=== PATIENT | female | born 1945 | race African-American/Black ===

== ENCOUNTER 2016-09-27 06:59 | Day surgery (SDC) | payer OTHER ==
[2016-09-27 07:38] VITALS: BMI 18.8
[2016-09-27] MEDS ORDERED: PROPOFOL 20 ML ONE (08:38)
[2016-09-27 08:55] VITALS: TEMP 97.9
[2016-09-27 10:23] VITALS: BP 188/86; PULSE 60
--- NOTE | 2016-09-28 15:01 | PATH ---
Surgical Pathology Report Patient Name: [facility] WE[facility]. Rec. #: [id number] /Age/Gender: 1945 (Age: 71) / F Account: [id number] Location: U-ENDOSCOPY Taken: 09/27/2016 Received: 09/27/2016 Reported: 09/28/2016 Physicians: Unruly Bailey M.D. Specimen(s) Received A: BX DUODENUM B: BX ANTRUM EROSIONS C: BX GASTRIC BODY D: BX ESOPHAGUS Clinical History Weight loss Antrum gastric ulcer, abnormal mucosa, rule out atrophy, Schatzki's ring Final Diagnosis A. DUODENUM, BIOPSY: DUODENAL MUCOSA WITHOUT SIGNIFICANT PATHOLOGIC CHANGES. NO HISTOLOGIC EVIDENCE OF GLUTEN SENSITIVE ENTEROPATHY (CELIAC DISEASE). B. STOMACH, ANTRUM, EROSION, BIOPSY: GASTRIC ANTRAL MUCOSA WITH MODERATE CHRONIC GASTRITIS AND REACTIVE GASTROPATHY. IMMUNOSTAIN FOR H. PYLORI IS NEGATIVE FOR ORGANISMS. C. STOMACH, BODY, BIOPSY: GASTRIC OXYNTIC MUCOSA WITH MILD CHRONIC GASTRITIS. IMMUNOSTAIN FOR H. PYLORI IS NEGATIVE FOR ORGANISMS. D. ESOPHAGUS, BIOPSY: SQUAMOUS EPITHELIUM WITH CHRONIC INFLAMMATION AND REFLUX TYPE CHANGES. NO COLUMNAR EPITHELIUM PRESENT (NO INTESTINAL METAPLASIA/DOHERTY'S ESOPHAGUS IDENTIFIED). NO EVIDENCE OF EOSINOPHILIC ESOPHAGITIS. Electronically Signed Yovany Don M.D. Gross Description A. Received in formalin, labeled "biopsy duodenum" are 2 ansari, irregular portions of soft tissue measuring 0.2 and 0.3 cm in greatest dimension. The specimens are submitted in toto in one cassette. B. Received in formalin, labeled "biopsy antrum" are 4 ansari, irregular portions of soft tissue ranging from 0.2-0.3 cm in greatest dimension. The specimens are submitted in toto in one cassette. C. Received in formalin, labeled "biopsy gastric body" is a ansari, irregular portion of soft tissue measuring 0.3 cm in greatest dimension. The specimen is submitted in toto in one cassette. D. Received in formalin, labeled "biopsy esophagus" is a ansari, irregular portion of soft tissue measuring 0.2 cm in greatest dimension. The specimen is submitted in toto in one cassette. /09/27/201609/27/2016
== END 2016-09-27 09:50 | disposition home or self-care (01) ==
LOC: JASU-ENDO 06:59
PROVIDERS: ATTEND Internal Medicine Gastroenterology
PROC: 0DB68ZX Excision of Stomach, Via Natural or Artificial Opening Endoscopic, Diagnostic (ICD-10-PCS; 2016-09-27)
PROC: 0DB98ZX Excision of Duodenum, Via Natural or Artificial Opening Endoscopic, Diagnostic (ICD-10-PCS; principal; 2016-09-27 08:30)
DX: K29.50 Unspecified chronic gastritis without bleeding (principal); R63.4 Abnormal weight loss; K25.9 Gastric ulcer, unspecified as acute or chronic, without hemorrhage or perforation; K22.2 Esophageal obstruction; K31.89 Other diseases of stomach and duodenum
CPT/HCPCS: 88305-TC; 88342-TC

== ENCOUNTER → 2017-01-12 | Day surgery (SDC) | payer OTHER ==
--- NOTE | 2017-01-13 17:26 | PATH ---
Cytology Non-Gynecological Report Patient Name: QUEEN WELLINGTON [facility]. Rec. #: [id number] /Age/Gender: 1945 (Age: 71) / F Account: [id number] Location: RADIOLOGY Taken: 01/12/2017 Received: 01/12/2017 Reported: 01/13/2017 Physicians: Johanna Gonzalez M.D. Specimen(s) Received LEFT THYROID FNA Clinical History Left Nodule, 3.24 x 1.41 x 2.22 cm Final Diagnosis THYROID, LEFT, FINE NEEDLE ASPIRATION: SATISFACTORY FOR EVALUATION BETHESDA CLASS II: BENIGN. CYTOLOGIC FINDINGS ARE CONSISTENT WITH A BENIGN FOLLICULAR NODULE BENIGN FOLLICULAR CELLS, FEW MACROPHAGES AND ABUNDANT COLLOID PRESENT. Electronically Signed Keturah Hussein M.D. Gross Description Received are eight direct smears, four of which are air-dried and Diff-Quik stained, and four of which are alcohol fixed and Pap stained. Also received is 20 ml of bloody formalin from which one cellblock is prepared.
== END | disposition home or self-care (01) ==
LOC: JRADIR 08:49
PROVIDERS: ATTEND Internal Medicine Endocrinology, Diabetes & Metabolism
PROC: 0G9G3ZX Drainage of Left Thyroid Gland Lobe, Percutaneous Approach, Diagnostic (ICD-10-PCS; principal; 2017-01-12)
DX: E04.1 Nontoxic single thyroid nodule (principal)
CPT/HCPCS: 76942; 88173; 88305-TC

== ENCOUNTER 2019-05-11 10:36 | Inpatient (IN) | payer OTHER ==
--- NOTE | 2019-05-11 11:13 | PDOC ---
History of Present Illness - General Stated Complaint: SYNCOPY Time Seen by Provider: 05/11/19 10:46 History Source: Patient, EMS, Spouse Exam Limitations: No Limitations - History of Present Illness Initial Comments: 05/11/19 11:10 74y F with PMH of CAD (s/p stent 2006), HTN, NIDDM (not on meds currently), ? CKD BIBEMS for syncopal episode. Pt states she was in line at a store then woke up on the floor. Her (who is blind) felt patient fall back onto him and he is unsure if patient hit her head but says when she was on the ground she immediately started verbalizing. He did not feel any convulsions but is unsure if she hit her head. Pt denies dehydration, prodromal symptoms, changes in vision, fevers, chills, chest pain, n/v/d, abdominal pain, numbness/tingling, weakness, headache, neck pain, sob. PMD: Nisha Cards: PMH: see hpi PSH: see hpi Meds: lisinopril, amlodipine, atorvastatin Allergies: nkda Social: Past History - Past Medical History Allergies/Adverse Reactions: Allergies Allergy/AdvReac Type Severity Reaction Status Date / Time No Known Allergies Allergy Verified 12/18/18 10:23 Home Medications: Ambulatory Orders Amlodipine Besylate [Norvasc -] 5 mg PO DAILY 09/27/16 Aspirin [ASA -] 81 mg PO DAILY 09/27/16 Labetalol HCl [Normodyne -] 200 mg PO DAILY 09/27/16 Lisinopril [Prinivil -] 40 mg PO DAILY 09/27/16 Anemia: No Asthma: No Cancer: No Cardiac Disorders: Yes ([place]) CVA: No COPD: No CHF: No Dementia: No Diabetes: Yes GI Disorders: No Disorders: No HTN: Yes Hypercholesterolemia: Yes Liver Disease: No Seizures: No Thyroid Disease: No - Surgical History Abdominal Surgery: No Appendectomy: No Cardiac Surgery: Yes (STENTS 2014) Cholecystectomy: No Lung Surgery: No Neurologic Surgery: No Orthopedic Surgery: No - Psycho Social/Smoking Cessation Hx Smoking History: Current some day smoker Have you smoked in the past 12 months: Yes Number of Cigarettes Smoked Daily: 6 Hx Alcohol Use: No Drug/Substance Use Hx: No Substance Use Type: None Hx Substance Use Treatment: No Review of Systems - Review of Systems Constitutional: No: Symptoms Reported HEENTM: No: Symptoms Reported Respiratory: No: Symptoms reported Cardiac (ROS): Yes: Syncope ABD/GI: No: Symptoms Reported : No: Symptoms Reported Musculoskeletal: No: Symptoms Reported Integumentary: No: Symptoms Reported Neurological: No: Symptoms reported *Physical Exam - Physical Exam General Appearance: Yes: Appropriately Dressed, Thin. No: Apparent Distress HEENT: positive: EOMI, BILL, Normal ENT Inspection Neck: positive: Trachea midline, Supple. negative: Tender, Lymphadenopathy (R) , Lymphadenopathy (L) Respiratory/Chest: positive: Lungs Clear, Normal Breath Sounds. negative: Crackles, Rales, Rhonchi, Stridor, Wheezing Cardiovascular: positive: Regular Rhythm, Regular Rate, Murmur (systolic murmer at r upper sternal border) Vascular Pulses: Dorsalis-Pedis (R): 2+, Doralis-Pedis (L): 2+ Gastrointestinal/Abdominal: positive: Normal Bowel Sounds, Soft. negative: Tender Musculoskeletal: negative: CVA Tenderness Extremity: positive: Normal Capillary Refill. 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 vitals wnl ddx includes acs, arrhythmia, pe, vasovagal, orthostatic. in light of new murmur, likely cardiac in origin. -cardiac labs, cbc, cmp -ekg, cxr, ct head labs wnl ct head negative for pathology, no signs of infection on cxr. ekg does not reveal signs of ischemia. will admit for syncope to tele. Discharge - Discharge Information Problems reviewed: Yes Clinical Impression/Diagnosis: Syncope Qualifiers: Syncope type: unspecified Qualified Code(s): R55 - Syncope and collapse Condition: Stable - Admission Yes - Follow up/Referral - Patient Discharge Instructions - Post Discharge Activity
[2019-05-11 11:34] LABS: BASO % 0.7 % (0-2.0); EOS % 0.2 % (0-4.5); HEMATOCRIT 33.3 % (32.4-45.2); HEMOGLOBIN 11.2 GM/dL (10.7-15.3); LYMPH % 18.5 % (8-40); MCH 29.8 pg (25.7-33.7); MCHC 33.7 g/dl (32.0-36.0); MEAN CELL VOLUME 88.4 fl (80-96); MEAN PLT VOLUME 8.5 fl (7.5-11.1); NEUT % 65.6 % (42.8-82.8); PLATELET COUNT 145 K/MM3 (134-434); RBC 3.77 M/mm3 (3.60-5.2); RDW 13.9 % (11.6-15.6); WHITE BLOOD COUNT 3.6 K/mm3 (4.0-10.0)
[2019-05-11 11:49] LABS: INR 1.14 (0.83-1.09); PROTHROMBIN TIME (PATIENT) 13.5 SEC (9.7-13.0)
[2019-05-11 12:05] LABS: ALBUMIN 3.1 g/dl (3.4-5.0); BILIRUBIN,TOTAL 0.4 mg/dL (0.2-1); CALCIUM 8.5 mg/dL (8.5-10.1); CREATININE 1.7 mg/dL (0.55-1.3)
--- NOTE | 2019-05-11 12:15 | PDOC ---
Documentation entered by Aaliyah Bacon SCRIBE, acting as scribe for Shannon Vicente MD. Shannon Vicente MD: This documentation has been prepared by the Jordi russell Adrianna, SCRIBE, under my direction and personally reviewed by me in its entirety. I confirm that the documentation accurately reflects all work, treatment, procedures, and medical decision making performed by me. Attending Attestation - Resident Resident Name: Suha De Jesus - ED Attending Attestation I have performed the following: I have examined & evaluated the patient, The case was reviewed & discussed with the resident, I agree w/resident's findings & plan, Exceptions are as noted - HPI HPI: 74 year old female, with PMH of [place] (s/p stent 14 years ago), CAD, HTN, DM (diet controlled), presents to the ED s/p syncopal episode. Patient was in line at a store, when she suddenly lost consciousness and fell into her . is blind, so he is unsure if she hit her head during the fall. She only recalls waking up on the floor, but was able to talk immediately after the episode. denies any precipitating chest pain or palpitations, only similar event 30 yrs ago. no dark stool. eating and drinking well. no f/c no urinary complaints. no other complaints. now at baseline no focal weakness. Allergies: NKA, NKDA Surgical History: stent Social History: Denies EtOH, tobacco, or illicit drug use PCP: Dr. Cameron 05/11/19 12:08 - Physicial Exam PE: 05/11/19 12:12 awake alert lungs clear bilat heart rrr systolic murmur /. abd soft nt nd ext wwp. no edema. no calf tenderness. skin warma nd dry nuero alert oriented x 3. 5/5 all four ext. speech clear. . - Medical Decision Making 05/11/19 12:12 74 yo F with h/o htn dm cad here with syncope. differential dehydration, critical , aaa, infection such as uti, dysrythmia, mi plan labs ekg cxr ct head r/o ich, pt will require admission to telemetry for r/o acs. dysrythmia. Heart Score/ECG Review #1 ECG reviewed & interpreted by me at: 12:14 General ECG Interpretation: Sinus Rhythm, Normal Rate (63), Normal Intervals, No acute ischemic changes Compared to previous ECG there are: Other (left axis)
[2019-05-11] MEDS ORDERED: INSULIN (NOVOLOG) ASPART 100 UNITS/ML 10ML VIAL SQ SCH (16:30)
--- NOTE | 2019-05-11 16:30 | HP ---
Admitting History and Physical - Primary Care Physician PCP: Yimi Cameron - Admission Chief Complaint: syncope History of Present Illness: 74 year old female with PMH [place], CAD s/p stenting, HTN, DM, CKD presents to the ED after syncopal episode. she was getting ready to leave the store and her whom is blind was behind her, felt her fall backwards on to him. he doesnt know if she hit her head. she woke up this morning feeling fine, ate breakfast, without issue. she does not remember the event. only remembers getting ready to check out and then woke up on the ground. she denies chest pains, pressure, n/v/d. she states she lives with her , uses no assistive devices, still drives. History Source: Patient, Family Member - Past Medical History Cardiovascular: Yes: CAD, HTN Renal/: Yes: Renal Inusuff Endocrine: Yes: Diabetes Mellitus - Past Surgical History Past Surgical History: Yes: Stent - Smoking History Smoking history: Current some day smoker Have you smoked in the past 12 months: Yes Aproximately how many cigarettes per day: 6 - Alcohol/Substance Use Hx Alcohol Use: No - Social History Usual Living Arrangement: Yes: With Spouse Home Medications - Allergies Allergies/Adverse Reactions: Allergies Allergy/AdvReac Type Severity Reaction Status Date / Time No Known Allergies Allergy Verified 12/18/18 10:23 - Home Medications Home Medications: Ambulatory Orders Amlodipine Besylate [Norvasc -] 5 mg PO DAILY 09/27/16 Aspirin [ASA -] 81 mg PO DAILY 09/27/16 Labetalol HCl [Normodyne -] 200 mg PO DAILY 09/27/16 Lisinopril [Prinivil -] 40 mg PO DAILY 09/27/16 Review of Systems - Review of Systems Constitutional: reports: No Symptoms Eyes: reports: No Symptoms HENT: reports: No Symptoms Neck: reports: No Symptoms Cardiovascular: reports: No Symptoms Respiratory: reports: No Symptoms Gastrointestinal: reports: No Symptoms Genitourinary: reports: No Symptoms Breasts: reports: No Symptoms Reported Musculoskeletal: reports: No Symptoms Integumentary: reports: No Symptoms Neurological: reports: No Symptoms Endocrine: reports: No Symptoms Hematology/Lymphatic: reports: No Symptoms Psychiatric: reports: No Symptoms Physical Examination Vital Signs: Vital Signs Temperature 98.3 F 05/11/19 15:17 Pulse Rate 64 02/21/20 10:45 Respiratory Rate 17 05/11/19 10:45 Blood Pressure 145/72 05/11/19 10:45 O2 Sat by Pulse Oximetry (%) 99 05/11/19 11:15 Constitutional: Yes: No Distress, Calm Eyes: Yes: Conjunctiva Clear HENT: Yes: Atraumatic, Normocephalic Neck: Yes: Supple Cardiovascular: Yes: Regular Rate and Rhythm Respiratory: Yes: Regular, CTA Bilaterally Gastrointestinal: Yes: Normal Bowel Sounds, Soft Musculoskeletal: Yes: WNL, Other (right shoulder arthritis, left foot arthritis) Extremities: Yes: WNL Integumentary: Yes: WNL Neurological: Yes: Alert, Oriented Labs: CBC, BMP 05/11/19 11:05 05/11/19 11:05 Problem List - Problems (1) Syncope and collapse Assessment/Plan: cardiology consult neuro consult head ct done check carotid check echo Code(s): R55 - SYNCOPE AND COLLAPSE (2) CAD (coronary artery disease) Assessment/Plan: cont home asa Code(s): I25.10 - ATHSCL HEART DISEASE OF [place] CORONARY ARTERY W/O ANG PCTRS (3) HTN (hypertension) Assessment/Plan: cont home meds monitor bp Code(s): I10 - ESSENTIAL (PRIMARY) HYPERTENSION (4) Diabetes Assessment/Plan: not on home meds monitor glucose check a1c Code(s): E11.9 - TYPE 2 DIABETES MELLITUS WITHOUT COMPLICATIONS (5) CKD (chronic kidney disease) Assessment/Plan: cr 1.7 monitor Code(s): N18.9 - CHRONIC KIDNEY DISEASE, UNSPECIFIED
--- NOTE | 2019-05-11 17:06 | CON.NEURO ---
Consult Consult Specialty:: NEUROLOGY-JEY FERNÁNDEZ - History of Present Illness History of Present Illness: 74 year old female with PMH [place], CAD s/p stenting, HTN, DM, CKD presents to the ED after syncopal episode. she was in the store and her whom is blind was behind her, felt her fall backwards on to him. he doesnt know if she hit her heard.Denies past syncope, denies premonition with current event, denies confusion after event. Denies all other neurologic symptoms. - Past Medical History Cardio/Vascular: Yes: CAD, HTN Renal/: Yes: Renal Inusuff Endocrine: Yes: Diabetes Mellitus - Past Surgical History Past Surgical History: Yes: Stent - Alcohol/Substance Use Hx Alcohol Use: No - Smoking History Smoking history: Current some day smoker Have you smoked in the past 12 months: Yes Aproximately how many cigarettes per day: 6 Home Medications - Allergies Allergies/Adverse Reactions: Allergies Allergy/AdvReac Type Severity Reaction Status Date / Time No Known Allergies Allergy Verified 12/18/18 10:23 - Home Medications Home Medications: Ambulatory Orders Amlodipine Besylate [Norvasc -] 5 mg PO DAILY 09/27/16 Aspirin [ASA -] 81 mg PO DAILY 09/27/16 Labetalol HCl [Normodyne -] 200 mg PO DAILY 09/27/16 Lisinopril [Prinivil -] 40 mg PO DAILY 09/27/16 Physical Exam-Neuro Vital Signs: Vital Signs Temperature 98.3 F 05/11/19 16:00 Pulse Rate 65 05/11/19 16:00 Respiratory Rate 18 05/11/19 16:00 Blood Pressure 159/77 05/11/19 16:00 O2 Sat by Pulse Oximetry (%) 99 05/11/19 16:00 Labs: CBC, BMP 05/11/19 11:05 05/11/19 11:05 INR, PTT INR 1.14 (0.83-1.09) H 05/11/19 11:05 - Neuro Exam Mini Mental Exam: normal DTR's: 0 Left Achilles, 0 Right Achilles, 2+ Left Bicep, 2+ Right Bicep, 2+ Left Tricep, 2+ Right Tricep, 2+ Left Brachioradialis, 2+ Right Brachioradialis Motor Strength: 5/5: Left Arm, Right Arm, Left Leg, Right Leg Gait: Other (somewhat slow but steady) Assessment/Plan Pt. presents with syncope, likely cardiogenic. No evid. of sz. Etiology?? med combination and cardiovasc. causes, not likely neurocardiogenic syncope. Agree with carotid study, echo. Thank you, please call if needed. Jose Roberto Martines MD
[2019-05-11] MEDS: HEPARIN NA (PORCINE) 5,000 UNITS/ML 1ML VIAL SQ SCH (22:52)
[2019-05-12 02:30] VITALS: BMI 19.5
[2019-05-12] MEDS ORDERED: LABETALOL HCL 200 MG TABLET (FP) PO ONE (04:28)
[2019-05-12] MEDS ORDERED: LISINOPRIL 20 MG TABLET (FP) PO ONE (04:29)
[2019-05-12 07:43] LABS: BASO % 0.7 % (0-2.0); EOS % 1.1 % (0-4.5); HEMATOCRIT 33.9 % (32.4-45.2); HEMOGLOBIN 11.4 GM/dL (10.7-15.3); LYMPH % 28.8 % (8-40); MCH 29.4 pg (25.7-33.7); MCHC 33.7 g/dl (32.0-36.0); MEAN CELL VOLUME 87.3 fl (80-96); MEAN PLT VOLUME 8.8 fl (7.5-11.1); MONO % 15.2 % (3.8-10.2); NEUT % 54.2 % (42.8-82.8); PLATELET COUNT 146 K/MM3 (134-434); RBC 3.88 M/mm3 (3.60-5.2); RDW 13.6 % (11.6-15.6)
[2019-05-12 08:09] LABS: ALBUMIN 3.1 g/dl (3.4-5.0); BILIRUBIN,TOTAL 0.6 mg/dL (0.2-1); BLOOD UREA NITROGEN 20.2 mg/dL (7-18); CALCIUM 8.4 mg/dL (8.5-10.1); CREATININE 1.4 mg/dL (0.55-1.3); POTASSIUM 3.1 mmol/L (3.5-5.1); TOT PROT 6.2 g/dl (6.4-8.2)
[2019-05-12] MEDS: LISINOPRIL 20 MG TABLET (FP) PO SCH (09:34)
[2019-05-12] MEDS: LABETALOL HCL 200 MG TABLET (FP) PO SCH (09:34)
[2019-05-12] MEDS: ASPIRIN 81 MG CHEWABLE TABLETS PO SCH (09:34)
[2019-05-12] MEDS: HEPARIN NA (PORCINE) 5,000 UNITS/ML 1ML VIAL SQ SCH ×2 (09:35→21:28)
[2019-05-12] MEDS ORDERED: POTASSIUM CHLORIDE TABS 20 MEQ TABLET.ER (FP) PO ONE (10:33)
--- NOTE | 2019-05-12 10:35 | EKG ---
Test Reason : Blood Pressure : / mmHG Vent. Rate : 063 BPM Atrial Rate : 063 BPM P-R Int : 184 ms QRS Dur : 082 ms QT Int : 440 ms P-R-T Axes : 056 -05 066 degrees QTc Int : 450 ms NORMAL SINUS RHYTHM POSSIBLE LEFT ATRIAL ENLARGEMENT ANTERIOR INFARCT , AGE UNDETERMINED ABNORMAL ECG NO PREVIOUS ECGS AVAILABLE Confirmed by IRA CLEVELAND MD ([id number]) on 05/12/2019 10:35:06 AM Referred By: Confirmed By:IRA CLEVELAND MD
--- NOTE | 2019-05-12 10:36 | PN ---
Progress Note, Physician Chief Complaint: AWAKE ALERT SYNCOPAL AND COLLAPSE YESTERDAY SEEN IN E.R. HEAD CT NO ACUTE CHANGES IN BED, DENIES HEADACHE OR CHEST PAIN/DIZZINESS - Current Medication List Current Medications: Active Medications Aspirin (Asa -) 81 mg PO DAILY [facility] Last Admin: 05/12/19 09:34 Dose: 81 mg Heparin Sodium (Porcine) (Heparin -) 5,000 unit SQ BID [facility] Last Admin: 05/12/19 09:35 Dose: 5,000 unit Insulin Aspart (Novolog Vial) 0 units SQ ACHS [facility]; Protocol Labetalol HCl (Normodyne -) 200 mg PO DAILY [facility] Last Admin: 05/12/19 09:34 Dose: 200 mg Lisinopril (Prinivil) 40 mg PO DAILY [facility] Last Admin: 05/12/19 09:34 Dose: 40 mg - Objective Vital Signs: Vital Signs Temperature 97.8 F 05/12/19 08:31 Pulse Rate 70 05/12/19 08:31 Respiratory Rate 18 05/12/19 08:33 Blood Pressure 158/92 05/12/19 08:31 O2 Sat by Pulse Oximetry (%) 98 05/12/19 08:33 Constitutional: Yes: Mild Distress Cardiovascular: Yes: Pulse Irregular Respiratory: Yes: WNL Gastrointestinal: Yes: WNL Genitourinary: Yes: WNL Musculoskeletal: Yes: Muscle Weakness Edema: No Peripheral Pulses WNL: Yes Integumentary: Yes: WNL Wound/Incision: Yes: Clean/Dry Neurological: Yes: Unsteady Gait ...Motor Strength: LLE, RLE Psychiatric: Yes: WNL Labs: CBC, BMP 05/12/19 05:58 05/12/19 05:58 INR, PTT INR 1.14 (0.83-1.09) H 05/11/19 11:05 Problem List - Problems (1) CAD (coronary artery disease) Code(s): I25.10 - ATHSCL HEART DISEASE OF [place] CORONARY ARTERY W/O ANG PCTRS (2) CKD (chronic kidney disease) Code(s): N18.9 - CHRONIC KIDNEY DISEASE, UNSPECIFIED (3) Diabetes Code(s): E11.9 - TYPE 2 DIABETES MELLITUS WITHOUT COMPLICATIONS (4) HTN (hypertension) Code(s): I10 - ESSENTIAL (PRIMARY) HYPERTENSION (5) Syncope Code(s): R55 - SYNCOPE AND COLLAPSE Qualifiers: Syncope type: unspecified Qualified Code(s): R55 - Syncope and collapse (6) Syncope and collapse Code(s): R55 - SYNCOPE AND COLLAPSE (7) Venous (peripheral) insufficiency Code(s): I87.2 - VENOUS INSUFFICIENCY (CHRONIC) (PERIPHERAL) Assessment/Plan TELEMETRY MONITORING CARDIOLOGY AND NEUROLOGY EVAL AND WORKUP IS IN PROGRESS PT EVAL REPLETE KCL NOW CHECK TSH OOB TO CHAIR DVT PROPHYLAXIS FALL RISKS
--- NOTE | 2019-05-12 15:22 | CON.CARD ---
Consult Consult Specialty:: Cardiology Reason for Consultation:: syncope - History of Present Illness History of Present Illness: 74 year old female with PMH [place], CAD s/p stenting many years ago, HTN, DM, CKD presents to the ED after syncopal episode. she was getting ready to leave the store and her whom is blind was behind her, felt her fall backwards on to him. She did not feel chest pain, palpitations, dizziness. No discomfort with exertion. Has occasional palpitations. She reports recent significant weight loss of 30 Lb - History Source History Provided By: Patient, Medical Record - Past Medical History Cardio/Vascular: Yes: CAD, HTN Renal/: Yes: Renal Inusuff Endocrine: Yes: Diabetes Mellitus - Past Surgical History Past Surgical History: Yes: Stent - Alcohol/Substance Use Hx Alcohol Use: No - Smoking History Smoking history: Current some day smoker Have you smoked in the past 12 months: Yes Aproximately how many cigarettes per day: 6 Home Medications - Allergies Allergies/Adverse Reactions: Allergies Allergy/AdvReac Type Severity Reaction Status Date / Time No Known Allergies Allergy Verified 12/18/18 10:23 - Home Medications Home Medications: Ambulatory Orders Amlodipine Besylate [Norvasc -] 5 mg PO DAILY 09/27/16 Aspirin [ASA -] 81 mg PO DAILY 09/27/16 Labetalol HCl [Normodyne -] 200 mg PO BID 09/27/16 Lisinopril [Prinivil -] 40 mg PO DAILY 09/27/16 Atorvastatin Calcium 10 mg PO HS 05/12/19 Review of Systems - Review of Systems Constitutional: reports: No Symptoms Eyes: reports: No Symptoms HENT: reports: No Symptoms Neck: reports: No Symptoms Cardiovascular: reports: No Symptoms Respiratory: reports: No Symptoms Gastrointestinal: reports: No Symptoms Genitourinary: reports: No Symptoms Vital Signs: Vital Signs Temperature 97.8 F 05/12/19 08:31 Pulse Rate 62 05/12/19 14:00 Respiratory Rate 18 05/12/19 14:00 Blood Pressure 147/90 05/12/19 14:00 O2 Sat by Pulse Oximetry (%) 98 05/12/19 08:33 Constitutional: Yes: Well Nourished, No Distress, Thin Eyes: Yes: Conjunctiva Clear, EOM Intact HENT: Yes: Atraumatic, Normocephalic Neck: Yes: Supple, Trachea Midline Respiratory: Yes: Regular, CTA Bilaterally Gastrointestinal: Yes: Normal Bowel Sounds Cardiovascular: Yes: Regular Rate and Rhythm JVD: No Carotid Bruit: No PMI: Non-Displaced Heart Sounds: Yes: S1, S2 Murmur: Yes: Systolic Murmur, Grade 2 Edema: No - Other Data Labs, Other Data: CBC, BMP 05/12/19 05:58 05/12/19 05:58 INR, PTT INR 1.14 (0.83-1.09) H 05/11/19 11:05 Troponin, BNP 05/11/19 05/12/19 18:55 05:58 Troponin I 0.04 0.04 Troponin, BNP 05/11/19 05/12/19 18:55 05:58 Troponin I 0.04 0[address] T changes. Problem List - Problems (1) CAD (coronary artery disease) Code(s): I25.10 - ATHSCL HEART DISEASE OF [place] CORONARY ARTERY W/O ANG PCTRS (2) Syncope Code(s): R55 - SYNCOPE AND COLLAPSE Qualifiers: Syncope type: unspecified Qualified Code(s): R55 - Syncope and collapse Assessment/Plan 74 F HTN with ho remote [place] and CKD. Admitted with syncope without prodrome. 1. Syncope: Unclear eitiology. Check orthostatic BP-supine, seated and standing. Check echocardiogram Telemetry Monitoring so far shows NSR. 2. HTN Mildl elevated Continue current therapy 3. CAD PIA negative no ischemic symptoms. ASA/Statin
[2019-05-13] MEDS: HEPARIN NA (PORCINE) 5,000 UNITS/ML 1ML VIAL SQ SCH ×2 (09:47→21:24)
[2019-05-13] MEDS: LISINOPRIL 20 MG TABLET (FP) PO SCH (09:47)
[2019-05-13] MEDS: ASPIRIN 81 MG CHEWABLE TABLETS PO SCH (09:47)
[2019-05-13] MEDS: LABETALOL HCL 200 MG TABLET (FP) PO SCH (09:47)
--- NOTE | 2019-05-13 09:56 | EKG ---
Test Reason : Blood Pressure : / mmHG Vent. Rate : 063 BPM Atrial Rate : 063 BPM P-R Int : 182 ms QRS Dur : 076 ms QT Int : 428 ms P-R-T Axes : 064 010 060 degrees QTc Int : 437 ms NORMAL SINUS RHYTHM POSSIBLE LEFT ATRIAL ENLARGEMENT BORDERLINE ECG WHEN COMPARED WITH ECG OF 11-MAY-2019 10:59, T WAVE AMPLITUDE HAS INCREASED IN ANTERIOR LEADS Confirmed by MEGHA FERNÁNDEZ, IRA ([id number]) on 05/13/2019 9:56:17 AM Referred By: Robin WEEKS Confirmed By:IRA CLEVELAND MD
--- NOTE | 2019-05-13 11:02 | PN ---
Progress Note, Physician Chief Complaint: AWAKE MORE ALERT SON BEDSIDE CONFUSION AT TIMES PER SON PATIENT DOES REPORT MEMORY LOSS AT TIMES - Current Medication List Current Medications: Active Medications Aspirin (Asa -) 81 mg PO DAILY [facility] Last Admin: 05/13/19 09:47 Dose: 81 mg Heparin Sodium (Porcine) (Heparin -) 5,000 unit SQ BID [facility] Last Admin: 05/13/19 09:47 Dose: 5,000 unit Labetalol HCl (Normodyne -) 200 mg PO DAILY [facility] Last Admin: 05/13/19 09:47 Dose: 200 mg Lisinopril (Prinivil) 40 mg PO DAILY [facility] Last Admin: 05/13/19 09:47 Dose: 40 mg - Objective Vital Signs: Vital Signs Temperature 97.6 F 05/13/19 01:20 Pulse Rate 67 05/13/19 05:51 Respiratory Rate 18 05/13/19 01:20 Blood Pressure 192/96 H 05/13/19 05:51 O2 Sat by Pulse Oximetry (%) 98 05/12/19 20:17 Constitutional: Yes: Mild Distress Cardiovascular: Yes: Regular Rate and Rhythm Respiratory: Yes: WNL Gastrointestinal: Yes: WNL Genitourinary: Yes: WNL Musculoskeletal: Yes: Muscle Weakness Integumentary: Yes: WNL Wound/Incision: Yes: Clean/Dry Neurological: Yes: Confusion ...Motor Strength: WNL Psychiatric: Yes: Other Labs: CBC, BMP 05/12/19 05:58 05/12/19 05:58 INR, PTT INR 1.14 (0.83-1.09) H 05/11/19 11:05 Problem List - Problems (1) CAD (coronary artery disease) Code(s): I25.10 - ATHSCL HEART DISEASE OF [place] CORONARY ARTERY W/O ANG PCTRS (2) CKD (chronic kidney disease) Code(s): N18.9 - CHRONIC KIDNEY DISEASE, UNSPECIFIED (3) Diabetes Code(s): E11.9 - TYPE 2 DIABETES MELLITUS WITHOUT COMPLICATIONS (4) HTN (hypertension) Code(s): I10 - ESSENTIAL (PRIMARY) HYPERTENSION (5) Syncope Code(s): R55 - SYNCOPE AND COLLAPSE Qualifiers: Syncope type: unspecified Qualified Code(s): R55 - Syncope and collapse (6) Syncope and collapse Code(s): R55 - SYNCOPE AND COLLAPSE (7) Venous (peripheral) insufficiency Code(s): I87.2 - VENOUS INSUFFICIENCY (CHRONIC) (PERIPHERAL) Assessment/Plan TELEMETRY MONITORING CARDIOLOGY AND NEUROLOGY EVAL AND WORKUP IS IN PROGRESS MRI BRAIN FOR CONFUSION PT EVAL CHECKING LABS NOW TSH AND FREE T4 BORDERLINE TOWARDS HYPERTHYROID OOB TO CHAIR DVT PROPHYLAXIS FALL RISKS
[2019-05-13 11:26] LABS: HEMATOCRIT 35.7 % (32.4-45.2); HEMOGLOBIN 11.9 GM/dL (10.7-15.3); MCH 29.2 pg (25.7-33.7); MCHC 33.3 g/dl (32.0-36.0); MEAN CELL VOLUME 87.7 fl (80-96); MEAN PLT VOLUME 8.3 fl (7.5-11.1); PLATELET COUNT 160 K/MM3 (134-434); RBC 4.07 M/mm3 (3.60-5.2); RDW 13.8 % (11.6-15.6); WHITE BLOOD COUNT 3.2 K/mm3 (4.0-10.0)
[2019-05-13 11:54] LABS: BLOOD UREA NITROGEN 18.7 mg/dL (7-18); CALCIUM 8.8 mg/dL (8.5-10.1); CREATININE 1.4 mg/dL (0.55-1.3); MAGNESIUM 1.7 mg/dL (1.8-2.4)
[2019-05-13 16:15] LABS: EPI CELLS 20.8 /HPF (0-5/HPF); HYALINE CASTS 7 /lpf (0-8); URINE APPEARANCE CLOUDY; URINE BACTERIA 587.3 /hpf (NEGATIVE); URINE BILIRUBIN NEGATIVE (NEGATIVE); URINE COLOR DK YELLOW; URINE GLUCOSE (UA) NEGATIVE (NEGATIVE); URINE KETONE TRACE (NEGATIVE); URINE LEUK ESTERASE NEGATIVE (NEGATIVE); URINE NITRITE NEGATIVE (NEGATIVE); URINE PROTEIN 1+ (NEGATIVE); URINE RBC 5 /hpf (0-4); URINE WBC 2 /hpf (0-5)
--- NOTE | 2019-05-13 16:22 | PN ---
Progress Note, Physician Chief Complaint: Telem NSR No dizzines. History of Present Illness: 74 year old female with PMH [place], CAD s/p stenting many years ago, HTN, DM, CKD presents to the ED after syncopal episode. she was getting ready to leave the store and her whom is blind was behind her, felt her fall backwards on to him. She did not feel chest pain, palpitations, dizziness. No discomfort with exertion. Has occasional palpitations. She reports recent significant weight loss of 30 Lb - Current Medication List Current Medications: Active Medications Aspirin (Asa -) 81 mg PO DAILY [facility] Last Admin: 05/13/19 09:47 Dose: 81 mg Heparin Sodium (Porcine) (Heparin -) 5,000 unit SQ BID [facility] Last Admin: 05/13/19 09:47 Dose: 5,000 unit Labetalol HCl (Normodyne -) 200 mg PO DAILY [facility] Last Admin: 05/13/19 09:47 Dose: 200 mg Lisinopril (Prinivil) 40 mg PO DAILY [facility] Last Admin: 05/13/19 09:47 Dose: 40 mg - Objective Vital Signs: Vital Signs Temperature 98 F 05/13/19 10:00 Pulse Rate 71 05/13/19 10:00 Respiratory Rate 18 05/13/19 10:00 Blood Pressure 151/83 05/13/19 10:00 O2 Sat by Pulse Oximetry (%) 98 05/13/19 09:00 Constitutional: Yes: Well Nourished, No Distress Eyes: Yes: Conjunctiva Clear HENT: Yes: Atraumatic, Normocephalic Neck: Yes: Supple, Trachea Midline Cardiovascular: Yes: Regular Rate and Rhythm Respiratory: Yes: Regular, CTA Bilaterally Gastrointestinal: Yes: Normal Bowel Sounds Edema: No Labs: CBC, BMP 05/13/19 11:17 05/13/19 11:17 INR, PTT INR 1.14 (0.83-1.09) H 05/11/19 11:05 Problem List - Problems (1) CAD (coronary artery disease) Code(s): I25.10 - ATHSCL HEART DISEASE OF [place] CORONARY ARTERY W/O ANG PCTRS (2) Syncope Code(s): R55 - SYNCOPE AND COLLAPSE Qualifiers: Syncope type: unspecified Qualified Code(s): R55 - Syncope and collapse Assessment/Plan 74 F HTN with ho remote [place] and CKD. Admitted with syncope without prodrome. 1. Syncope: Unclear eitiology. Check orthostatic BP-supine, seated and standing. Check echocardiogram Telemetry Monitoring so far shows NSR. 2. HTN Continue current therapy 3. CAD PIA negative no ischemic symptoms. ASA/Statin
[2019-05-13] MEDS ORDERED: HALOPERIDOL LACTATE 5 MG/ML IM ONE (23:59)
[2019-05-14 07:01] VITALS: TEMP 98.1
--- NOTE | 2019-05-14 07:59 | PN ---
Progress Note (short form) - Note Progress Note: 74 year old female with PMH [place], CAD s/p stenting, HTN, DM, CKD presents to the ED after syncopal episode. she was in the store and her whom is blind was behind her, felt her fall backwards on to him. he doesnt know if she hit her heard.Denies past syncope, denies premonition with current event, denies confusion after event. Denies all other neurologic symptoms. FU : seen by cardiology family notes confusion , agitation worsens at night this AM comfortable , son bedside , feels she has had memory issues in past as well she lives with , children involved in care - Past Medical History Cardio/Vascular: Yes: CAD, HTN Renal/: Yes: Renal Inusuff Endocrine: Yes: Diabetes Mellitus - Past Surgical History Past Surgical History: Yes: Stent - Alcohol/Substance Use Hx Alcohol Use: No - Smoking History Smoking history: Current some day smoker Have you smoked in the past 12 months: Yes Aproximately how many cigarettes per day: 6 Home Medications - Allergies Allergies/Adverse Reactions: Allergies Allergy/AdvReac Type Severity Reaction Status Date / Time No Known Allergies Allergy Verified 12/18/18 10:23 - Home Medications Home Medications: Ambulatory Orders Amlodipine Besylate [Norvasc -] 5 mg PO DAILY 09/27/16 Aspirin [ASA -] 81 mg PO DAILY 09/27/16 Labetalol HCl [Normodyne -] 200 mg PO DAILY 09/27/16 Lisinopril [Prinivil -] 40 mg PO DAILY 09/27/16 Physical Exam-Neuro Vital Signs: Vital Signs Temperature 98.1 F 05/14/19 06:00 Pulse Rate 77 05/14/19 06:00 Respiratory Rate 20 05/14/19 06:00 Blood Pressure 188/99 H 05/14/19 06:00 O2 Sat by Pulse Oximetry (%) 99 05/13/19 21:00 Labs: CBCD WBC 3.2 K/mm3 (4.0-10.0) L 05/13/19 11:17 RBC 4.07 M/mm3 (3.60-5.2) 05/13/19 11:17 Hgb 11.9 GM/dL (10.7-15.3) 05/13/19 11:17 Hct 35.7 % (32.4-45.2) 05/13/19 11:17 MCV 87.7 fl (80-96) 05/13/19 11:17 MCHC 33.3 g/dl (32.0-36.0) 05/13/19 11:17 RDW 13.8 % (11.6-15.6) 05/13/19 11:17 Plt Count 160 K/MM3 (134-434) 05/13/19 11:17 MPV 8.3 fl (7.5-11.1) 05/13/19 11:17 CMP Sodium 140 mmol/L (136-145) 05/13/19 11:17 Potassium 4.0 mmol/L (3.5-5.1) 05/13/19 11:17 Chloride 106 mmol/L (98-107) 05/13/19 11:17 Carbon Dioxide 28 mmol/L (21-32) 05/13/19 11:17 Anion Gap 6 MMOL/L (8-16) L 05/13/19 11:17 BUN 18.7 mg/dL (7-18) H 05/13/19 11:17 Creatinine 1.4 mg/dL (0.55-1.3) H 05/13/19 11:17 Calcium 8.8 mg/dL (8.5-10.1) 05/13/19 11:17 Total Bilirubin 0.6 mg/dL (0.2-1) 05/12/19 05:58 AST 25 U/L (15-37) 05/12/19 05:58 ALT 18 U/L (13-61) 05/12/19 05:58 Alkaline Phosphatase 77 U/L (45-117) 05/12/19 05:58 Total Protein 6.2 g/dl (6.4-8.2) L 05/12/19 05:58 Albumin 3.1 g/dl (3.4-5.0) L 05/12/19 05:58 - Neuro Exam Mini Mental Exam: normal DTR's: 0 Left Achilles, 0 Right Achilles, 2+ Left Bicep, 2+ Right Bicep, 2+ Left Tricep, 2+ Right Tricep, 2+ Left Brachioradialis, 2+ Right Brachioradialis Motor Strength: 5/5: Left Arm, Right Arm, Left Leg, Right Leg Gait: Other (somewhat slow but steady) Assessment/Plan Pt. presents with syncope, likely cardiogenic. No evid. of sz. Etiology?? med combination and cardiovasc, dehydration causes, not likely neurocardiogenic syncope. confusion-- perhaps related to a underlying dementia , with sundowning features -she will likely do better when she returns home will get MRI today to rule out any acute pathology , if (-) can FU as outpt ; agree with [facility] services which may be helpful; family in agreement DR BARAJAS
[2019-05-14] MEDS: HEPARIN NA (PORCINE) 5,000 UNITS/ML 1ML VIAL SQ SCH (10:11)
[2019-05-14] MEDS: LABETALOL HCL 200 MG TABLET (FP) PO SCH (10:11)
[2019-05-14] MEDS: LISINOPRIL 20 MG TABLET (FP) PO SCH (10:11)
[2019-05-14] MEDS: ASPIRIN 81 MG CHEWABLE TABLETS PO SCH (10:11)
--- NOTE | 2019-05-14 10:17 | DS ---
Physical Examination Vital Signs: Vital Signs Temperature 98.1 F 05/14/19 06:00 Pulse Rate 77 05/14/19 06:00 Respiratory Rate 20 05/14/19 06:00 Blood Pressure 188/99 H 05/14/19 06:00 O2 Sat by Pulse Oximetry (%) 99 05/13/19 21:00 Findings/Remarks: Laboratory Last Values WBC 3.2 K/mm3 (4.0-10.0) L 05/13/19 11:17 RBC 4.07 M/mm3 (3.60-5.2) 05/13/19 11:17 Hgb 11.9 GM/dL (10.7-15.3) 05/13/19 11:17 Hct 35.7 % (32.4-45.2) 05/13/19 11:17 MCV 87.7 fl (80-96) 05/13/19 11:17 MCH 29.2 pg (25.7-33.7) 05/13/19 11:17 MCHC 33.3 g/dl (32.0-36.0) 05/13/19 11:17 RDW 13.8 % (11.6-15.6) 05/13/19 11:17 Plt Count 160 K/MM3 (134-434) 05/13/19 11:17 MPV 8.3 fl (7.5-11.1) 05/13/19 11:17 Absolute Neuts (auto) 1.6 K/mm3 (1.5-8.0) 05/12/19 05:58 Neutrophils % 54.2 % (42.8-82.8) 05/12/19 05:58 Lymphocytes % 28.8 % (8-40) D 05/12/19 05:58 Monocytes % 15.2 % (3.8-10.2) H 05/12/19 05:58 Eosinophils % 1.1 % (0-4.5) D 05/12/19 05:58 Basophils % 0.7 % (0-2.0) 05/12/19 05:58 Nucleated RBC % 0 % (0-0) 05/12/19 05:58 PT with INR 13.50 SEC (9.7-13.0) H 05/11/19 11:05 INR 1.14 (0.83-1.09) H 05/11/19 11:05 Sodium 140 mmol/L (136-145) 05/13/19 11:17 Potassium 4.0 mmol/L (3.5-5.1) 05/13/19 11:17 Chloride 106 mmol/L (98-107) 05/13/19 11:17 Carbon Dioxide 28 mmol/L (21-32) 05/13/19 11:17 Anion Gap 6 MMOL/L (8-16) L 05/13/19 11:17 BUN 18.7 mg/dL (7-18) H 05/13/19 11:17 Creatinine 1.4 mg/dL (0.55-1.3) H 05/13/19 11:17 Est GFR (CKD-EPI)AfAm 42.19 05/13/19 11:17 Est GFR (CKD-EPI)NonAf 36.41 05/13/19 11:17 POC Glucometer 96 UNITS (80-120) 05/13/19 17:40 Random Glucose 87 mg/dL (74-106) 05/13/19 11:17 Hemoglobin A1c % 6.0 % (4.2-6.3) 05/12/19 05:58 Calcium 8.8 mg/dL (8.5-10.1) 05/13/19 11:17 Magnesium 1.7 mg/dL (1.8-2.4) L 05/13/19 11:17 Total Bilirubin 0.6 mg/dL (0.2-1) 05/12/19 05:58 AST 25 U/L (15-37) 05/12/19 05:58 ALT 18 U/L (13-61) 05/12/19 05:58 Alkaline Phosphatase 77 U/L (45-117) 05/12/19 05:58 Creatine Kinase 356 U/L (26-192) H 05/12/19 05:58 Creatine Kinase Index 0.3 % (0.0-5.0) 05/12/19 05:58 CK-MB (CK-2) 1.3 ng/mL (0.5-3.6) 05/12/19 05:58 Troponin I 0.04 ng/ml (0.00-0.05) 05/12/19 05:58 Total Protein 6.2 g/dl (6.4-8.2) L 05/12/19 05:58 Albumin 3.1 g/dl (3.4-5.0) L 05/12/19 05:58 TSH 1.83 uIU/ml (0.358-3.74) 05/12/19 05:58 Urine Color Dk yellow 05/13/19 12:40 Urine Appearance Cloudy 05/13/19 12:40 Urine pH 6.0 (5.0-8.0) 05/13/19 12:40 Ur Specific [address] 1.022 (1.010-1.035) 05/13/19 12:40 Urine Protein 1+ (NEGATIVE) H 05/13/19 12:40 Urine Glucose (UA) Negative (NEGATIVE) 05/13/19 12:40 Urine Ketones Trace (NEGATIVE) H 05/13/19 12:40 Urine Blood Negative (NEGATIVE) 05/13/19 12:40 Urine Nitrite Negative (NEGATIVE) 05/13/19 12:40 Urine Bilirubin Negative (NEGATIVE) 05/13/19 12:40 Urine Urobilinogen 1.0 mg/dL (0.2-1.0) 05/13/19 12:40 Ur Leukocyte Esterase Negative (NEGATIVE) 05/13/19 12:40 Urine WBC (Auto) 2 /hpf (0-5) 05/13/19 12:40 Urine RBC (Auto) 5 /hpf (0-4) 05/13/19 12:40 Urine Casts (Auto) 7 /lpf (0-8) 05/13/19 12:40 U Epithel Cells (Auto) 20.8 /HPF (0-5/HPF) 05/13/19 12:40 Urine Bacteria (Auto) 587.3 /hpf (NEGATIVE) 05/13/19 12:40 Home Medication List Medication Instructions Recorded Confirmed Type Amlodipine Besylate [Norvasc -] 5 mg PO DAILY 09/27/16 05/12/19 History Atorvastatin Calcium 10 mg PO HS 05/12/19 05/12/19 History Active Medications Generic Name Dose Route Start Last Admin Trade Name Freq PRN Reason Stop Dose Admin Aspirin 81 mg 05/12/19 10:00 05/14/19 10:11 Asa - PO 81 mg DAILY [facility] Administration Heparin Sodium (Porcine) 5,000 unit 05/11/19 22:00 05/14/19 10:11 Heparin - SQ 5,000 unit BID [facility] Administration Labetalol HCl 200 mg 05/12/19 10:00 05/14/19 10:11 Normodyne - PO 200 mg DAILY [facility] Administration Lisinopril 40 mg 05/12/19 10:00 05/14/19 10:11 Prinivil PO 40 mg DAILY [facility] Administration Constitutional: Yes: No Distress, Calm, Thin Eyes: Yes: Conjunctiva Clear HENT: Yes: Atraumatic Cardiovascular: Yes: Regular Rate and Rhythm Respiratory: Yes: Regular, CTA Bilaterally Gastrointestinal: Yes: Normal Bowel Sounds, Soft Musculoskeletal: Yes: Muscle Weakness Extremities: Yes: WNL Edema: No Neurological: Yes: Alert Psychiatric: Yes: Alert Labs: CBC, BMP 05/13/19 11:17 05/13/19 11:17 Discharge Summary Problems reviewed: Yes Reason For Visit: SYNCOPE Current Active Problems CAD (coronary artery disease) (Acute) CKD (chronic kidney disease) (Acute) Diabetes (Acute) HTN (hypertension) (Acute) Syncope (Acute) Syncope and collapse (Acute) Hospital Course: 74 year old female with PMH [place], CAD s/p stenting, HTN, DM, CKD presents to the ED after syncopal episode. she was getting ready to leave the store and her whom is blind was behind her, felt her fall backwards on to him. he doesnt know if she hit her head. she woke up this morning feeling fine, ate breakfast, without issue. she does not remember the event. only remembers getting ready to check out and then woke up on the ground. she denies chest pains, pressure, n/v/d. she states she lives with her , uses no assistive devices, still drives. Patient was evaluated by Neurology and appears to have symptoms correlating with early dementia. MRI of brain ordered. Patient will have visiting nurse services set up for discharge. Evaluated by Cardiology and recommendations reviewed and appreciated. Patient will be discharged home after MRI. Condition: Stable - Instructions Diet, Activity, Other Instructions: Follow up with PCP as scheduled Follow up with Neurology Dr Gomez for outpatient management of dementia continue with medication as prescribed low Na diet return to ER if develop severe pain, respiratory distress, acute change in mental status Referrals: Mickey Gomez DO [Staff Physician] - Yimi Cameron MD [Primary Care Provider] - Disposition: VNS/HOME HEALTH CARE - Home Medications Comprehensive Discharge Medication List: Ambulatory Orders Amlodipine Besylate [Norvasc -] 5 mg PO DAILY 09/27/16 Atorvastatin Calcium 10 mg PO HS 05/12/19 Aspirin [ASA -] 81 mg PO DAILY #30 tab.chew 05/14/19 Labetalol HCl [Normodyne -] 200 mg PO BID #60 tablet 05/14/19 Lisinopril [Prinivil -] 40 mg PO DAILY #30 tablet 05/14/19
--- NOTE | 2019-05-14 10:22 | ECHO ---
Name: [facility] Exam:Adult Echocardiogram Study Date: 05/14/2019 08:36 AM Age: 74 yrs Reason For Study: Arrhythmia Height: 67 in Weight: 116 lb BSA: 1.6 m2 MMode/2D Measurements & Calculations IVSd: 1.1 cm Ao root diam: 2.2 cm LVIDd: 2.9 cm LA dimension: 3.2 cm LVIDs: 2.4 cm ACS: 1.5 cm LVPWd: 1.2 cm EDV(Teich): 32.5 ml LVOT diam: 1.8 cm ESV(Teich): 19.5 ml Doppler Measurements & Calculations MV E max molly: 55.3 cm/sec Ao V2 max: 141.2 cm/sec MV A max molly: 133.8 cm/sec Ao max P.0 mmHg MV E/A: 0.41 Ao V2 mean: 103.0 cm/sec MV dec time: 0.23 sec Ao mean P.6 mmHg Ao V2 VTI: 28.6 cm JUSTINE(I,D): 2.2 cm2 JUSTINE(V,D): 1.9 cm2 LV V1 max P.1 mmHg MR max molly: 248.9 cm/sec LV V1 mean P.2 mmHg MR max P.8 mmHg LV V1 max: 101.2 cm/sec LV V1 mean: 70.8 cm/sec LV V1 VTI: 23.7 cm SV(LVOT): 62.4 ml TR max molly: 209.8 cm/sec TR max P.8 mmHg PA V2 max: 92.8 cm/sec PA max P.4 mmHg Left Ventricle The left ventricle is normal in size. There is mild concentric left ventricular hypertrophy. The left ventricular ejection fraction is normal. Ejection Fraction = 60-65%. The transmitral spectral Doppler flow pattern is suggestive of impaired LV relaxation. Right Ventricle The right ventricle is normal in size and function. Atria Normal left and right atrial size and function. Mitral Valve There is mild mitral valve thickening. There is trace to mild mitral regurgitation. Tricuspid Valve The tricuspid valve is not well visualized, but is grossly normal. There is mild tricuspid regurgitat ion. Right ventricular systolic pressure is normal. Aortic Valve Mildly calcified. No hemodynamically significant valvular aortic stenosis. No aortic regurgitation is present. Pulmonic Valve The pulmonic valve is not well visualized. Great Vessels The aortic root is normal size. Pericardium/Pleura There is no pericardial effusion. Interpretation Summary LC: Normal size, mild LVH with senile septum,normal systolic function,EF 60-65%, impaired relaxation RV: Normal Mildly calcified aortic valve Trace to mild MR and TR,. Anahi Peterson 05/14/2019 10:22 AM
[2019-05-14 14:29] VITALS: BP 160/80; PULSE 72
== END 2019-05-14 12:19 | disposition home health service (06) | DRG 884 ==
LOC: JER 10:36 → JERBED 14:02 → J4W 21:24
PROVIDERS: ADMIT Family Medicine; ATTEND Family Medicine
DX: F03.91 Unspecified dementia, unspecified severity, with behavioral disturbance (principal); R55 Syncope and collapse; I25.10 Atherosclerotic heart disease of native coronary artery without angina pectoris; I10 Essential (primary) hypertension; I12.9 Hypertensive chronic kidney disease with stage 1 through stage 4 chronic kidney disease, or unspecified chronic kidney disease; E11.22 Type 2 diabetes mellitus with diabetic chronic kidney disease; N18.9 Chronic kidney disease, unspecified; E78.00 Pure hypercholesterolemia, unspecified; F17.210 Nicotine dependence, cigarettes, uncomplicated; E11.51 Type 2 diabetes mellitus with diabetic peripheral angiopathy without gangrene; F03.90 Unspecified dementia, unspecified severity, without behavioral disturbance, psychotic disturbance, mood disturbance, and anxiety; I25.2 Old myocardial infarction; Z95.5 Presence of coronary angioplasty implant and graft
CPT/HCPCS: 36415; 70450-TC; 70551-TC; 71045-TC-FY; 76775; 80048; 80053; 81003; 82550; 82553; 82962; 83036; 83735; 84443; 84484; 85025; 85027; 85610; 87086; 93005; 93010; 93306-TC; 93880-TC; 97116-GP; 97161-GP; 99285-25; J1644

== ENCOUNTER 2020-05-20 11:04 | Emergency (ER) | payer OTHER ==
[2020-05-20 11:22] VITALS: BMI 19.5
[2020-05-20] MEDS ORDERED: BAMLANIVIMAB 700 MG in SODIUM CHLORIDE 250 ML IVPB ONE (11:41)
[2020-05-20 12:25] LABS: HEMATOCRIT 40.6 % (32.4-45.2); HEMOGLOBIN 13.8 GM/dL (10.7-15.3); MCH 29.9 pg (25.7-33.7); MCHC 33.9 g/dl (32.0-36.0); MEAN CELL VOLUME 88.1 fl (80-96); MEAN PLT VOLUME 8.2 fl (7.5-11.1); PLATELET COUNT 181 K/MM3 (134-434); RDW 13.2 % (11.6-15.6)
[2020-05-20 12:44] LABS: POTASSIUM 4.3 mmol/L (3.5-5.1)
[2020-05-20 12:47] LABS: BLOOD UREA NITROGEN 34.8 mg/dL (7-18)
[2020-05-20 12:50] LABS: CREATININE 1.8 mg/dL (0.55-1.3)
[2020-05-20 14:07] VITALS: BP 153/85; PULSE 82
[2020-05-20 14:08] VITALS: TEMP 98.6
== END 2020-05-20 15:00 | disposition home or self-care (01) ==
LOC: JER 11:04
DX: U07.1 COVID-19 (principal)
CPT/HCPCS: 36415; 80048; 85027; 99284-25; M0239; Q0239

== ENCOUNTER 2022-01-03 17:42 | Emergency (ER) | payer OTHER ==
[2022-01-03 17:46] VITALS: BP 134/74; PULSE 76; RESP 18; TEMP 98.8; BMI 17.6
[2022-01-03] MEDS ORDERED: ACETAMINOPHEN 1000 MG/100 ML BAG IVPB ONE (18:57)
[2022-01-03] MEDS ORDERED: SODIUM CHLORIDE 0.9% 500 ML INFUS.BAG IV ONE (18:57)
[2022-01-03] MEDS ORDERED: ACETAMINOPHEN INJECTION 100 ML IVPB ONE (19:28)
[2022-01-03 20:16] LABS: BASO % 0.5 % (0-2.0); EOS % 0.9 % (0-4.5); HEMATOCRIT 39.3 % (32.4-45.2); HEMOGLOBIN 12.9 GM/dL (10.7-15.3); LYMPH % 31.1 % (8-40); MCH 28.8 pg (25.7-33.7); MCHC 32.8 g/dl (32.0-36.0); MEAN CELL VOLUME 87.8 fl (80-96); MEAN PLT VOLUME 7.8 fl (7.5-11.1); MONO % 10.3 % (3.8-10.2); NEUT % 57.2 % (42.8-82.8); PLATELET COUNT 288 10^3/uL (134-434); RBC 4.47 M/mm3 (3.60-5.2); RDW 13.9 % (11.6-15.6); WHITE BLOOD COUNT 5.8 K/mm3 (4.0-10.0)
[2022-01-03 20:36] LABS: ALBUMIN 3.9 g/dl (3.4-5.0); CALCIUM 9.5 mg/dL (8.5-10.1)
[2022-01-03 20:37] LABS: BLOOD UREA NITROGEN 19.6 mg/dL (7-18)
[2022-01-03 20:39] LABS: CREATININE 1.6 mg/dL (0.55-1.3)
[2022-01-03 20:40] LABS: EPI CELLS >36 /uL (0-25.1); HYALINE CASTS 15 /uL (0-3.1); PH,URINE 5.5 (5.0-8.0); URINE APPEARANCE CLOUDY; URINE BACTERIA 3336 /uL (0-1359); URINE BILIRUBIN 2+ (NEGATIVE); URINE COLOR DK YELLOW; URINE GLUCOSE (UA) NEGATIVE (NEGATIVE); URINE KETONE 1+ (NEGATIVE); URINE LEUK ESTERASE TRACE (NEGATIVE); URINE NITRITE NEGATIVE (NEGATIVE); URINE PROTEIN 1+ (NEGATIVE); URINE WBC 53 /uL (0-25.8)
[2022-01-03 20:41] LABS: BILIRUBIN,TOTAL 0.6 mg/dL (0.2-1); TOT PROT 7.3 g/dl (6.4-8.2)
[2022-01-03 22:08] LABS: URINE RBC 188 /uL (0-23.9)
[2022-01-04 18:03] LABS: MAGNESIUM 1.8 mg/dL (1.8-2.4)
== END 2022-01-03 22:59 | disposition home or self-care (01) ==
LOC: JER 17:42
PROC: 3E033GC Introduction of Other Therapeutic Substance into Peripheral Vein, Percutaneous Approach (ICD-10-PCS; principal; 2022-01-03)
DX: R10.84 Generalized abdominal pain (principal)
CPT/HCPCS: 0241U-QW; 36415; 71045-TC-FY; 74176-TC; 80053; 81003; 83690; 83735; 84484; 85025; 87086; 93005; 93010; 96374; 99285-25

== ENCOUNTER 2022-01-09 13:04 | Emergency (ER) | payer OTHER ==
[2022-01-09 13:21] VITALS: TEMP 98.5; BMI 17.6
[2022-01-09] MEDS ORDERED: FAMOTIDINE 20 MG/50 ML IVPB 20 MG/50 ML MG IVPB ONE ×2 (14:46→15:22)
[2022-01-09] MEDS ORDERED: ONDANSETRON 4 MG/2 ML VIAL IVPUSH ONE (14:46)
[2022-01-09] MEDS ORDERED: SODIUM CHLORIDE 0.9% 500 ML INFUS.BAG IV ONE (14:48)
[2022-01-09] MEDS ORDERED: ONDANSETRON 4 MG/2 ML VIAL ONE (15:22)
[2022-01-09 16:55] LABS: BASO % 0.9 % (0-2.0); EOS % 0.6 % (0-4.5); HEMATOCRIT 36.6 % (32.4-45.2); HEMOGLOBIN 12.3 GM/dL (10.7-15.3); MCH 29.5 pg (25.7-33.7); MCHC 33.6 g/dl (32.0-36.0); MEAN CELL VOLUME 87.8 fl (80-96); MEAN PLT VOLUME 7.8 fl (7.5-11.1); NEUT % 63.5 % (42.8-82.8); PLATELET COUNT 281 10^3/uL (134-434); RBC 4.16 M/mm3 (3.60-5.2); RDW 13.7 % (11.6-15.6); WHITE BLOOD COUNT 6.4 K/mm3 (4.0-10.0)
[2022-01-09 17:19] LABS: ALBUMIN 3.4 g/dl (3.4-5.0); BLOOD UREA NITROGEN 18.8 mg/dL (7-18); CALCIUM 9.3 mg/dL (8.5-10.1)
[2022-01-09 17:23] LABS: BILIRUBIN,TOTAL 0.6 mg/dL (0.2-1); CREATININE 1.1 mg/dL (0.55-1.3); TOT PROT 6.6 g/dl (6.4-8.2)
[2022-01-09 20:02] VITALS: BP 128/85; PULSE 76; RESP 20
== END 2022-01-09 20:02 | disposition home or self-care (01) ==
LOC: JER 13:04
PROC: 3E033GC Introduction of Other Therapeutic Substance into Peripheral Vein, Percutaneous Approach (ICD-10-PCS; principal; 2022-01-09)
DX: R10.11 Right upper quadrant pain (principal)
CPT/HCPCS: 36415; 74176-TC; 76700-TC; 80053; 83690; 85025; 93005; 93010; 99285-25; C9803-CS; U0003; U0005

== ENCOUNTER 2022-02-22 11:03 | Inpatient (IN) | payer OTHER ==
[2022-02-22] MEDS ORDERED: ACETAMINOPHEN 1000 MG/100 ML BAG IVPB ONE (13:23)
[2022-02-22] MEDS ORDERED: ACETAMINOPHEN INJECTION 100 ML IVPB ONE (13:36)
[2022-02-22 14:24] LABS: BASO % 0.4 % (0-2.0); EOS % 0.2 % (0-4.5); HEMATOCRIT 27.4 % (32.4-45.2); HEMOGLOBIN 9.1 GM/dL (10.7-15.3); LYMPH % 10.7 % (8-40); MCH 30.2 pg (25.7-33.7); MCHC 33.3 g/dl (32.0-36.0); MEAN CELL VOLUME 90.5 fl (80-96); MEAN PLT VOLUME 7.8 fl (7.5-11.1); MONO % 7.6 % (3.8-10.2); NEUT % 81.1 % (42.8-82.8); PLATELET COUNT 242 10^3/uL (134-434); RBC 3.03 M/mm3 (3.60-5.2); RDW 15.5 % (11.6-15.6); WHITE BLOOD COUNT 8.4 K/mm3 (4.0-10.0)
[2022-02-22 14:36] LABS: INR 1.01 (0.83-1.09); PROTHROMBIN TIME (PATIENT) 11.6 SEC (9.7-13.0)
[2022-02-22 14:39] LABS: ACTIVATED PTT 38.1 SECONDS (25.2-36.5)
[2022-02-22 14:57] LABS: BLOOD UREA NITROGEN 22.3 mg/dL (7-18); MAGNESIUM 1.9 mg/dL (1.8-2.4)
[2022-02-22 15:00] LABS: CREATININE 1.5 mg/dL (0.55-1.3)
[2022-02-22 15:01] LABS: BILIRUBIN,TOTAL 0.6 mg/dL (0.2-1); TOT PROT 5.5 g/dl (6.4-8.2)
[2022-02-22] MEDS ORDERED: KETOROLAC TROMETHAMINE 15 MG/ML VIAL IVPUSH PRN (18:38)
[2022-02-22] MEDS ORDERED: ACETAMINOPHEN 1000 MG/100 ML BAG IVPB PRN (18:38)
[2022-02-22] MEDS ORDERED: METOPROLOL TARTRATE 5 MG/5 ML VIAL IVPB PRN (18:40)
[2022-02-22 18:57] LABS: PH,URINE 7.5 (5.0-8.0); URINE APPEARANCE CLEAR; URINE BILIRUBIN NEGATIVE (NEGATIVE); URINE COLOR YELLOW; URINE GLUCOSE (UA) NEGATIVE (NEGATIVE); URINE KETONE NEGATIVE (NEGATIVE); URINE LEUK ESTERASE NEGATIVE (NEGATIVE); URINE NITRITE NEGATIVE (NEGATIVE); URINE PROTEIN TRACE (NEGATIVE); URINE UROBILINOGEN 0.2 mg/dL (0.2-1.0)
[2022-02-22] MEDS ORDERED: PANTOPRAZOLE SODIUM 40 MG VIAL ONE (23:29)
[2022-02-22] MEDS ORDERED: LIDOCAINE 5% TOPICAL PATCH ONE (23:29)
[2022-02-22] MEDS: PANTOPRAZOLE SODIUM 40 MG VIAL IVPUSH SCH (23:31)
[2022-02-22] MEDS: LIDOCAINE 5% TOPICAL PATCH TP SCH (23:31)
[2022-02-23] MEDS ORDERED: ACETAMINOPHEN INJECTION 100 ML IVPB ONE (00:09)
[2022-02-23] MEDS ORDERED: HALOPERIDOL LACTATE 5 MG/ML IM ONE (03:59)
[2022-02-23] MEDS: D5-NS + 40 MEQ KCL - 40 MEQ/1,000 ML INFUS.BAG IV SCH ×2 (04:00→21:00)
[2022-02-23 05:51] LABS: HEMATOCRIT 28.9 % (32.4-45.2); HEMOGLOBIN 9.5 GM/dL (10.7-15.3); MCH 29.8 pg (25.7-33.7); MCHC 32.9 g/dl (32.0-36.0); MEAN CELL VOLUME 90.5 fl (80-96); MEAN PLT VOLUME 8.2 fl (7.5-11.1); PLATELET COUNT 243 10^3/uL (134-434); RDW 15.8 % (11.6-15.6); WHITE BLOOD COUNT 7.4 K/mm3 (4.0-10.0)
[2022-02-23 06:13] LABS: CALCIUM 9.2 mg/dL (8.5-10.1)
[2022-02-23 06:14] LABS: ALBUMIN 3.2 g/dl (3.4-5.0); BLOOD UREA NITROGEN 19.6 mg/dL (7-18)
[2022-02-23 06:17] LABS: CREATININE 1.3 mg/dL (0.55-1.3)
[2022-02-23 06:19] LABS: BILIRUBIN,TOTAL 1.1 mg/dL (0.2-1)
[2022-02-23] MEDS ORDERED: ENOXAPARIN NA (PORCINE) 40 MG/0.4 ML DISP.SYRIN SQ SCH (10:00)
[2022-02-23] MEDS ORDERED: ENOXAPARIN NA (PORCINE) 30 MG/0.3 ML DISP.SYRIN SQ SCH (10:00)
[2022-02-23] MEDS: LIDOCAINE PATCH REMOVAL MC SCH (11:00)
[2022-02-23] MEDS: PANTOPRAZOLE SODIUM 40 MG VIAL IVPUSH SCH (15:29)
[2022-02-23] MEDS ORDERED: PANTOPRAZOLE SODIUM 40 MG VIAL ONE (16:37)
[2022-02-23] MEDS ORDERED: SODIUM CHLORIDE 0.45% 1,000 ML IV SCH (18:15)
[2022-02-24] MEDS ORDERED: HALOPERIDOL LACTATE 5 MG/ML IM ONE (00:15)
[2022-02-24] MEDS: LIDOCAINE 5% TOPICAL PATCH TP SCH (00:36)
[2022-02-24] MEDS: D5-NS + 40 MEQ KCL - 40 MEQ/1,000 ML INFUS.BAG IV SCH (02:34)
[2022-02-24] MEDS ORDERED: PNEUMOC 20-VAL CONJ-DIP CRM/PF 0.5 ML SYRINGE IM ONE (10:00)
[2022-02-24 10:04] LABS: ALBUMIN 2.9 g/dl (3.4-5.0); CALCIUM 9.2 mg/dL (8.5-10.1)
[2022-02-24 10:05] LABS: BLOOD UREA NITROGEN 22.1 mg/dL (7-18)
[2022-02-24 10:08] LABS: CREATININE 1.2 mg/dL (0.55-1.3); TOT PROT 5.7 g/dl (6.4-8.2)
[2022-02-24] MEDS: LIDOCAINE PATCH REMOVAL MC SCH (10:38)
[2022-02-24] MEDS: PANTOPRAZOLE SODIUM 40 MG VIAL IVPUSH SCH (11:20)
[2022-02-24] MEDS ORDERED: ceFAZolin SODIUM 1 GM VIAL ONE ×2 (12:52→14:06)
[2022-02-24] MEDS ORDERED: PROPOFOL 20 ML ONE (13:26)
[2022-02-24] MEDS ORDERED: BUPIVACAINE HCL/PF 0.5% (5MG/ML) 10 ML VIAL ONE (13:34)
[2022-02-24] MEDS ORDERED: FENTANYL CITRATE/PF 50 MCG/ML VIAL ONE (13:48)
[2022-02-24] MEDS ORDERED: POTASSIUM CHLORIDE 20 MEQ in DEXTROSE 5%-WATER - 1,000 ML IV SCH (14:00)
[2022-02-24] MEDS ORDERED: ONDANSETRON 4 MG/2 ML VIAL IVPUSH PRN ×2 (14:03→15:11)
[2022-02-24] MEDS ORDERED: ceFAZolin SODIUM 1 GM VIAL IVPB ONE ×2 (14:05→14:10)
[2022-02-24] MEDS ORDERED: ACETAMINOPHEN 1000 MG/100 ML BAG IVPB SCH (14:15)
[2022-02-24] MEDS ORDERED: LACTATED RINGERS SOLUTION 1,000 ML IV SCH ×2 (14:15→15:11)
[2022-02-24] MEDS ORDERED: VANCOMYCIN 1,000 MG VIAL (RESTRICTED TO ID ONLY) ONE (14:27)
[2022-02-24] MEDS ORDERED: KETOROLAC TROMETHAMINE 15 MG/ML VIAL IVPUSH PRN (15:11)
[2022-02-24] MEDS ORDERED: METOPROLOL TARTRATE 5 MG/5 ML VIAL IVPB PRN (15:11)
[2022-02-24] MEDS ORDERED: LABETALOL HCL 5 MG/1 ML (100MG/20 ML VIAL) IVPUSH ONE ×2 (16:06→16:09)
[2022-02-24] MEDS: ACETAMINOPHEN 1000 MG/100 ML BAG IVPB SCH (20:17)
[2022-02-24] MEDS ORDERED: CEFAZOLIN SODIUM 2 GM in DEXTROSE 5%-WATER 100 ML IVPB SCH (22:00)
[2022-02-24] MEDS: CEFAZOLIN SODIUM 2 GM in DEXTROSE 5%-WATER 100 ML IVPB SCH (22:28)
[2022-02-24] MEDS: POTASSIUM CHLORIDE 20 MEQ in DEXTROSE 5%-WATER - 1,000 ML IV SCH (22:32)
[2022-02-25] MEDS: LIDOCAINE 5% TOPICAL PATCH TP SCH ×2 (03:51→22:29)
[2022-02-25] MEDS: ACETAMINOPHEN 1000 MG/100 ML BAG IVPB SCH ×2 (03:52→10:06)
[2022-02-25] MEDS: POTASSIUM CHLORIDE 20 MEQ in DEXTROSE 5%-WATER - 1,000 ML IV SCH (03:53)
[2022-02-25] MEDS: CEFAZOLIN SODIUM 2 GM in DEXTROSE 5%-WATER 100 ML IVPB SCH (07:03)
[2022-02-25] MEDS ORDERED: PANTOPRAZOLE SODIUM 40 MG VIAL IVPUSH SCH (10:00)
[2022-02-25] MEDS: MULTIVITAMINS (DAILY MVI) TABLET (FP) PO SCH (10:05)
[2022-02-25] MEDS: ENOXAPARIN NA (PORCINE) 30 MG/0.3 ML DISP.SYRIN SQ SCH (10:05)
[2022-02-25] MEDS: LIDOCAINE PATCH REMOVAL MC SCH (10:07)
[2022-02-25 11:12] LABS: ALBUMIN 2.6 g/dl (3.4-5.0); CALCIUM 8.6 mg/dL (8.5-10.1)
[2022-02-25 11:13] LABS: BLOOD UREA NITROGEN 25.5 mg/dL (7-18)
[2022-02-25 11:15] LABS: CREATININE 1.2 mg/dL (0.55-1.3)
[2022-02-25 11:17] LABS: BILIRUBIN,TOTAL 0.9 mg/dL (0.2-1); TOT PROT 5.3 g/dl (6.4-8.2)
[2022-02-25 13:32] LABS: HEMATOCRIT 24.1 % (32.4-45.2); HEMOGLOBIN 7.9 GM/dL (10.7-15.3); MCH 29.6 pg (25.7-33.7); MCHC 32.8 g/dl (32.0-36.0); MEAN CELL VOLUME 90.5 fl (80-96); MEAN PLT VOLUME 8.4 fl (7.5-11.1); PLATELET COUNT 220 10^3/uL (134-434); RBC 2.66 M/mm3 (3.60-5.2); RDW 15.6 % (11.6-15.6); WHITE BLOOD COUNT 8.7 K/mm3 (4.0-10.0)
[2022-02-25] MEDS: CLOPIDOGREL BISULFATE 75 MG TABLET (FP) PO SCH (14:53)
[2022-02-25] MEDS: amLODIPine BESYLATE 10 MG TABLET (FP) PO SCH (14:53)
[2022-02-25] MEDS: LABETALOL HCL 200 MG TABLET (FP) PO SCH (14:54)
[2022-02-25] MEDS: LISINOPRIL 20 MG TABLET PO SCH (14:54)
[2022-02-25] MEDS: POTASSIUM CHLORIDE 10 MEQ in DEXTROSE 5%-WATER - 1,000 ML IV SCH (16:21)
[2022-02-25] MEDS ORDERED: TETRAHYDROZOLINE HCL EYE DROPS OD PRN (18:06)
[2022-02-25] MEDS ORDERED: ARTIFICIAL TEARS (POLYVINYL ALCOHOL) OPTH DROPS OU PRN (18:06)
[2022-02-25] MEDS ORDERED: IRON SUCROSE INJECTION 200 MG in SODIUM CHLORIDE 90 ML IVPB ONE (19:30)
[2022-02-25] MEDS: CYPROHEPTADINE HCL 4 MG TABLET PO SCH (22:10)
[2022-02-25] MEDS: ATORVASTATIN CA 10 MG TABLET (FP) PO SCH (22:11)
[2022-02-26 06:59] LABS: PH,URINE 5.5 (5.0-8.0); URINE APPEARANCE CLEAR; URINE BILIRUBIN NEGATIVE (NEGATIVE); URINE COLOR YELLOW; URINE GLUCOSE (UA) NEGATIVE (NEGATIVE); URINE KETONE TRACE (NEGATIVE); URINE LEUK ESTERASE NEGATIVE (NEGATIVE); URINE NITRITE NEGATIVE (NEGATIVE); URINE PROTEIN TRACE (NEGATIVE); URINE UROBILINOGEN 0.2 mg/dL (0.2-1.0)
[2022-02-26] MEDS: POTASSIUM CHLORIDE 10 MEQ in DEXTROSE 5%-WATER - 1,000 ML IV SCH (08:20)
[2022-02-26 08:21] LABS: HEMATOCRIT 19.8 % (32.4-45.2); MCH 30.1 pg (25.7-33.7); MCHC 33.4 g/dl (32.0-36.0); MEAN PLT VOLUME 8.3 fl (7.5-11.1); PLATELET COUNT 175 10^3/uL (134-434); RDW 15.5 % (11.6-15.6)
[2022-02-26 08:48] LABS: HEMOGLOBIN 6.6 GM/dL (10.7-15.3)
[2022-02-26 08:50] LABS: ALBUMIN 2.1 g/dl (3.4-5.0); BLOOD UREA NITROGEN 35.7 mg/dL (7-18); CALCIUM 8.2 mg/dL (8.5-10.1)
[2022-02-26 08:54] LABS: TOT PROT 4.6 g/dl (6.4-8.2)
[2022-02-26 08:55] LABS: BILIRUBIN,TOTAL 0.6 mg/dL (0.2-1); CREATININE 1.4 mg/dL (0.55-1.3)
[2022-02-26] MEDS ORDERED: FUROSEMIDE 40 MG/4 ML INJECTABLE VIAL IVPUSH SCH (09:23)
[2022-02-26] MEDS: LABETALOL HCL 200 MG TABLET (FP) PO SCH (11:16)
[2022-02-26] MEDS: ENOXAPARIN NA (PORCINE) 30 MG/0.3 ML DISP.SYRIN SQ SCH (11:16)
[2022-02-26] MEDS: LISINOPRIL 20 MG TABLET PO SCH (11:16)
[2022-02-26] MEDS: FERROUS SO4 325 MG TABLET (FP) PO SCH (11:16)
[2022-02-26] MEDS: CLOPIDOGREL BISULFATE 75 MG TABLET (FP) PO SCH (11:17)
[2022-02-26] MEDS: MULTIVITAMINS (DAILY MVI) TABLET (FP) PO SCH (11:17)
[2022-02-26] MEDS: amLODIPine BESYLATE 10 MG TABLET (FP) PO SCH (11:17)
[2022-02-26] MEDS: LIDOCAINE PATCH REMOVAL MC SCH (11:17)
[2022-02-26] MEDS: PANTOPRAZOLE 20 MG TABLET PO SCH (11:17)
[2022-02-26] MEDS: POLYETHYLENE GLYCOL (HEALTHYLAX) 3350 17 GM PACKET PO SCH ×2 (15:17→21:52)
[2022-02-26] MEDS: AMINO ACIDS/PROTEIN HYDROLYS 30 ML LIQUID.PKT PO SCH (18:10)
[2022-02-26] MEDS ORDERED: FUROSEMIDE 40 MG/4 ML INJECTABLE VIAL ONE (19:18)
[2022-02-26] MEDS: CYPROHEPTADINE HCL 4 MG TABLET PO SCH (21:50)
[2022-02-26] MEDS: LIDOCAINE 5% TOPICAL PATCH TP SCH (21:52)
[2022-02-26] MEDS: ATORVASTATIN CA 10 MG TABLET (FP) PO SCH (21:52)
[2022-02-27] MEDS: POTASSIUM CHLORIDE 10 MEQ in DEXTROSE 5%-WATER - 1,000 ML IV SCH ×3 (01:49→18:17)
[2022-02-27 09:30] LABS: HEMATOCRIT 32.5 % (32.4-45.2); MCH 29.7 pg (25.7-33.7); MEAN CELL VOLUME 87.4 fl (80-96); MEAN PLT VOLUME 8.9 fl (7.5-11.1); PLATELET COUNT 194 10^3/uL (134-434); RBC 3.72 M/mm3 (3.60-5.2); RDW 15.3 % (11.6-15.6); WHITE BLOOD COUNT 7.8 K/mm3 (4.0-10.0)
[2022-02-27 10:05] LABS: BLOOD UREA NITROGEN 31.3 mg/dL (7-18); CALCIUM 8.5 mg/dL (8.5-10.1)
[2022-02-27 10:11] LABS: CREATININE 1.2 mg/dL (0.55-1.3)
[2022-02-27] MEDS: LABETALOL HCL 200 MG TABLET (FP) PO SCH (10:15)
[2022-02-27] MEDS: ENOXAPARIN NA (PORCINE) 30 MG/0.3 ML DISP.SYRIN SQ SCH (10:15)
[2022-02-27] MEDS: CLOPIDOGREL BISULFATE 75 MG TABLET (FP) PO SCH (10:16)
[2022-02-27] MEDS: MULTIVITAMINS (DAILY MVI) TABLET (FP) PO SCH (10:16)
[2022-02-27] MEDS: amLODIPine BESYLATE 10 MG TABLET (FP) PO SCH (10:16)
[2022-02-27] MEDS: AMINO ACIDS/PROTEIN HYDROLYS 30 ML LIQUID.PKT PO SCH ×3 (10:16→17:10)
[2022-02-27] MEDS: FERROUS SO4 325 MG TABLET (FP) PO SCH (10:16)
[2022-02-27] MEDS: LISINOPRIL 20 MG TABLET PO SCH (10:16)
[2022-02-27] MEDS: POLYETHYLENE GLYCOL (HEALTHYLAX) 3350 17 GM PACKET PO SCH ×2 (10:17→22:07)
[2022-02-27] MEDS: PANTOPRAZOLE 20 MG TABLET PO SCH (10:17)
[2022-02-27] MEDS: LIDOCAINE PATCH REMOVAL MC SCH (10:18)
[2022-02-27] MEDS: KCL 10 MEQ IVPB 10 MEQ/100 ML INFUS.BAG IVPB SCH ×3 (14:15→16:15)
[2022-02-27] MEDS: CYPROHEPTADINE HCL 4 MG TABLET PO SCH (22:10)
[2022-02-27] MEDS: ATORVASTATIN CA 10 MG TABLET (FP) PO SCH (22:11)
[2022-02-27] MEDS: LIDOCAINE 5% TOPICAL PATCH TP SCH (22:12)
[2022-02-28] MEDS: POTASSIUM CHLORIDE 10 MEQ in DEXTROSE 5%-WATER - 1,000 ML IV SCH ×2 (02:04→17:18)
[2022-02-28] MEDS ORDERED: ACETAMINOPHEN 1000 MG/100 ML BAG IVPB ONE (05:34)
[2022-02-28] MEDS ORDERED: HALOPERIDOL LACTATE 5 MG/ML IM ONE (05:34)
[2022-02-28 08:29] LABS: HEMATOCRIT 29.6 % (32.4-45.2); HEMOGLOBIN 10.1 GM/dL (10.7-15.3); MCH 30.1 pg (25.7-33.7); MCHC 34.1 g/dl (32.0-36.0); MEAN CELL VOLUME 88.1 fl (80-96); MEAN PLT VOLUME 7.7 fl (7.5-11.1); PLATELET COUNT 206 10^3/uL (134-434); RBC 3.36 M/mm3 (3.60-5.2); RDW 15.4 % (11.6-15.6)
[2022-02-28] MEDS: AMINO ACIDS/PROTEIN HYDROLYS 30 ML LIQUID.PKT PO SCH ×3 (08:55→18:08)
[2022-02-28] MEDS: FERROUS SO4 325 MG TABLET (FP) PO SCH (08:55)
[2022-02-28 09:05] LABS: ALBUMIN 2.3 g/dl (3.4-5.0); BLOOD UREA NITROGEN 31.1 mg/dL (7-18); CALCIUM 8.7 mg/dL (8.5-10.1)
[2022-02-28 09:10] LABS: TOT PROT 5.2 g/dl (6.4-8.2)
[2022-02-28 09:11] LABS: BILIRUBIN,TOTAL 1.1 mg/dL (0.2-1)
[2022-02-28] MEDS: ENOXAPARIN NA (PORCINE) 30 MG/0.3 ML DISP.SYRIN SQ SCH (11:35)
[2022-02-28] MEDS: POLYETHYLENE GLYCOL (HEALTHYLAX) 3350 17 GM PACKET PO SCH ×2 (11:35→22:32)
[2022-02-28] MEDS: MULTIVITAMINS (DAILY MVI) TABLET (FP) PO SCH (11:36)
[2022-02-28] MEDS: CLOPIDOGREL BISULFATE 75 MG TABLET (FP) PO SCH (11:36)
[2022-02-28] MEDS: amLODIPine BESYLATE 10 MG TABLET (FP) PO SCH (11:37)
[2022-02-28] MEDS: LABETALOL HCL 200 MG TABLET (FP) PO SCH (11:37)
[2022-02-28] MEDS: LISINOPRIL 20 MG TABLET PO SCH (11:37)
[2022-02-28] MEDS: PANTOPRAZOLE 20 MG TABLET PO SCH (11:38)
[2022-02-28 13:21] VITALS: BMI 18.9
[2022-02-28] MEDS: LIDOCAINE PATCH REMOVAL MC SCH (13:40)
[2022-02-28] MEDS: LORazepam 1 MG TABLET PO PRN (18:07)
[2022-02-28] MEDS: ASCORBIC ACID 250 MG TABLET (FP) PO SCH (22:32)
[2022-02-28] MEDS: CYPROHEPTADINE HCL 4 MG TABLET PO SCH (22:32)
[2022-02-28] MEDS: ATORVASTATIN CA 10 MG TABLET (FP) PO SCH (22:33)
[2022-02-28] MEDS: LIDOCAINE 5% TOPICAL PATCH TP SCH (22:33)
[2022-03-01] MEDS: LORazepam 1 MG TABLET PO PRN (07:08)
[2022-03-01 09:00] LABS: HEMATOCRIT 33.4 % (32.4-45.2); HEMOGLOBIN 11.1 GM/dL (10.7-15.3); MCH 29.8 pg (25.7-33.7); MCHC 33.3 g/dl (32.0-36.0); MEAN CELL VOLUME 89.2 fl (80-96); MEAN PLT VOLUME 7.9 fl (7.5-11.1); PLATELET COUNT 246 10^3/uL (134-434); RBC 3.74 M/mm3 (3.60-5.2); RDW 15.2 % (11.6-15.6); WHITE BLOOD COUNT 5.6 K/mm3 (4.0-10.0)
[2022-03-01] MEDS: AMINO ACIDS/PROTEIN HYDROLYS 30 ML LIQUID.PKT PO SCH ×3 (09:16→17:59)
[2022-03-01] MEDS: FERROUS SO4 325 MG TABLET (FP) PO SCH (09:16)
[2022-03-01 10:09] LABS: TOT PROT 5.2 g/dl (6.4-8.2)
[2022-03-01 10:13] LABS: CALCIUM 8.8 mg/dL (8.5-10.1)
[2022-03-01 10:14] LABS: ALBUMIN 2.3 g/dl (3.4-5.0); BLOOD UREA NITROGEN 33.6 mg/dL (7-18); MAGNESIUM 1.8 mg/dL (1.8-2.4)
[2022-03-01] MEDS: LISINOPRIL 20 MG TABLET PO SCH (11:49)
[2022-03-01] MEDS: PANTOPRAZOLE 20 MG TABLET PO SCH (11:49)
[2022-03-01] MEDS: amLODIPine BESYLATE 10 MG TABLET (FP) PO SCH (11:50)
[2022-03-01] MEDS: LABETALOL HCL 200 MG TABLET (FP) PO SCH (11:50)
[2022-03-01] MEDS: CLOPIDOGREL BISULFATE 75 MG TABLET (FP) PO SCH (11:50)
[2022-03-01] MEDS: ASCORBIC ACID 250 MG TABLET (FP) PO SCH (11:51)
[2022-03-01] MEDS: POLYETHYLENE GLYCOL (HEALTHYLAX) 3350 17 GM PACKET PO SCH ×2 (11:51→22:52)
[2022-03-01] MEDS: ENOXAPARIN NA (PORCINE) 30 MG/0.3 ML DISP.SYRIN SQ SCH (11:52)
[2022-03-01] MEDS: MULTIVITAMINS (DAILY MVI) TABLET (FP) PO SCH (11:52)
[2022-03-01] MEDS: LIDOCAINE PATCH REMOVAL MC SCH (11:52)
[2022-03-01] MEDS ORDERED: HALOPERIDOL LACTATE 5 MG/ML IM PRN (17:03)
[2022-03-01] MEDS: LIDOCAINE 5% TOPICAL PATCH TP SCH (22:53)
[2022-03-02] MEDS: CYPROHEPTADINE HCL 4 MG TABLET PO SCH (00:48)
[2022-03-02] MEDS: ATORVASTATIN CA 10 MG TABLET (FP) PO SCH (00:48)
[2022-03-02] MEDS: ASCORBIC ACID 250 MG TABLET (FP) PO SCH ×2 (00:48→09:48)
[2022-03-02] MEDS: LABETALOL HCL 200 MG TABLET (FP) PO SCH (09:46)
[2022-03-02] MEDS: MULTIVITAMINS (DAILY MVI) TABLET (FP) PO SCH (09:46)
[2022-03-02] MEDS: FERROUS SO4 325 MG TABLET (FP) PO SCH (09:46)
[2022-03-02] MEDS: LISINOPRIL 20 MG TABLET PO SCH (09:46)
[2022-03-02] MEDS: CLOPIDOGREL BISULFATE 75 MG TABLET (FP) PO SCH (09:46)
[2022-03-02] MEDS: PANTOPRAZOLE 20 MG TABLET PO SCH (09:46)
[2022-03-02] MEDS: POLYETHYLENE GLYCOL (HEALTHYLAX) 3350 17 GM PACKET PO SCH (09:46)
[2022-03-02] MEDS: LIDOCAINE PATCH REMOVAL MC SCH (09:47)
[2022-03-02] MEDS: ENOXAPARIN NA (PORCINE) 30 MG/0.3 ML DISP.SYRIN SQ SCH (09:47)
[2022-03-02] MEDS: AMINO ACIDS/PROTEIN HYDROLYS 30 ML LIQUID.PKT PO SCH ×2 (09:47→13:58)
[2022-03-02] MEDS: amLODIPine BESYLATE 10 MG TABLET (FP) PO SCH (09:52)
[2022-03-02 15:25] VITALS: BP 131/65; PULSE 77; RESP 20; TEMP 98.8
== END 2022-03-02 15:57 | DRG 522 ==
LOC: JER 11:03 → JERBED 16:46 → J7W 02-23 21:07
PROVIDERS: ADMIT Family Medicine; ATTEND Family Medicine
PROC: 0SRR0JZ Replacement of Right Hip Joint, Femoral Surface with Synthetic Substitute, Open Approach (ICD-10-PCS; principal; 2022-02-24 13:45)
PROC: 30233N1 Transfusion of Nonautologous Red Blood Cells into Peripheral Vein, Percutaneous Approach (ICD-10-PCS; 2022-02-26)
DX: S72.001A Fracture of unspecified part of neck of right femur, initial encounter for closed fracture (principal); E87.0 Hyperosmolality and hypernatremia; E78.5 Hyperlipidemia, unspecified; E87.6 Hypokalemia; F03.90 Unspecified dementia, unspecified severity, without behavioral disturbance, psychotic disturbance, mood disturbance, and anxiety; I25.10 Atherosclerotic heart disease of native coronary artery without angina pectoris; I25.2 Old myocardial infarction; K25.9 Gastric ulcer, unspecified as acute or chronic, without hemorrhage or perforation; M25.552 Pain in left hip; M25.551 Pain in right hip; I12.9 Hypertensive chronic kidney disease with stage 1 through stage 4 chronic kidney disease, or unspecified chronic kidney disease; E11.22 Type 2 diabetes mellitus with diabetic chronic kidney disease; N18.9 Chronic kidney disease, unspecified; W18.30XA Fall on same level, unspecified, initial encounter; Y92.098 Other place in other non-institutional residence as the place of occurrence of the external cause; Z95.5 Presence of coronary angioplasty implant and graft
CPT/HCPCS: 0241U-QW; 36415; 36430; 70450-TC; 71045-TC-FY; 72125-TC; 73502-TC-RT-FY; 73552-TC-LT-FY; 73552-TC-RT-FY; 80048; 80053; 81003; 82272; 82962; 83735; 84484; 85025; 85027; 85610; 85730; 86850; 86900; 86901; 86922; 87086; 88305-TC; 88311-TC; 93005; 93010; 94010; 94760; 97116-GP; 97162-GP; 99285-25; C1776; J1756; P9038; P9058

== ENCOUNTER 2022-04-06 13:37 | Observation (INO) | payer OTHER ==
[2022-04-06 14:58] LABS: BASO % 0.7 % (0-2.0); EOS % 0.6 % (0-4.5); HEMATOCRIT 31.2 % (32.4-45.2); LYMPH % 16.4 % (8-40); MCHC 32.2 g/dl (32.0-36.0); MEAN CELL VOLUME 93.2 fl (80-96); MEAN PLT VOLUME 7.6 fl (7.5-11.1); MONO % 7.4 % (3.8-10.2); NEUT % 74.9 % (42.8-82.8); PLATELET COUNT 270 10^3/uL (134-434); RBC 3.35 M/mm3 (3.60-5.2); RDW 15.2 % (11.6-15.6); WHITE BLOOD COUNT 6.4 K/mm3 (4.0-10.0)
[2022-04-06 15:04] LABS: INR 1.03 (0.83-1.09); PROTHROMBIN TIME (PATIENT) 11.8 SEC (9.7-13.0)
[2022-04-06 15:14] LABS: CHLORIDE 106 mmol/L (98-107); SODIUM 144 mmol/L (136-145)
[2022-04-06 15:17] LABS: ANION GAP 7 MMOL/L (8-16); BLOOD UREA NITROGEN 21.9 mg/dL (7-18); CALCIUM 8.9 mg/dL (8.5-10.1); CO2 31 mmol/L (21-32); GLUCOSE,RANDOM 127 mg/dL (74-106)
[2022-04-06] MEDS ORDERED: ACETAMINOPHEN 325 MG TABLET (FP) PO ONE (15:19)
[2022-04-06 15:20] LABS: SGOT/AST 23 U/L (15-37); SGPT/ALT 18 U/L (13-61)
[2022-04-06 15:22] LABS: TOT PROT 5.9 g/dl (6.4-8.2)
[2022-04-06 15:23] LABS: ALK PHOS 108 U/L (45-117); MAGNESIUM 2.1 mg/dL (1.8-2.4)
[2022-04-06 15:34] LABS: BILIRUBIN,TOTAL 0.4 mg/dL (0.2-1); CREATININE 1.1 mg/dL (0.55-1.3)
[2022-04-06] MEDS ORDERED: ACETAMINOPHEN 325 MG TABLET (FP) ONE (17:50)
[2022-04-06] MEDS ORDERED: KETAMINE HCL 500 MG/10 ML VIAL ONE (18:03)
[2022-04-06] MEDS ORDERED: PROPOFOL 20 ML ONE (18:03)
[2022-04-06] MEDS ORDERED: KETAMINE HCL 200 MG/20 ML VIAL IVPUSH ONE (18:05)
[2022-04-06] MEDS ORDERED: PROPOFOL 200 MG/20 ML VIAL IVPUSH ONE ×2 (18:05→18:47)
[2022-04-06 19:06] LABS: PH,URINE 8.5 (5.0-8.0); URINE APPEARANCE CLEAR; URINE BILIRUBIN NEGATIVE (NEGATIVE); URINE COLOR YELLOW; URINE GLUCOSE (UA) NEGATIVE (NEGATIVE); URINE KETONE NEGATIVE (NEGATIVE); URINE LEUK ESTERASE NEGATIVE (NEGATIVE); URINE NITRITE NEGATIVE (NEGATIVE); URINE PROTEIN TRACE (NEGATIVE); URINE UROBILINOGEN 0.2 mg/dL (0.2-1.0)
[2022-04-06] MEDS ORDERED: ARTIFICIAL TEARS (POLYVINYL ALCOHOL) OPTH DROPS OU PRN (22:49)
[2022-04-07] MEDS ORDERED: ACETAMINOPHEN 325 MG TABLET (FP) PO PRN ×2 (03:49→19:09)
[2022-04-07 07:29] LABS: BASO % 2.4 % (0-2.0); EOS % 0.7 % (0-4.5); HEMATOCRIT 31.4 % (32.4-45.2); HEMOGLOBIN 10.3 GM/dL (10.7-15.3); LYMPH % 17.9 % (8-40); MCH 30.5 pg (25.7-33.7); MCHC 32.8 g/dl (32.0-36.0); MONO % 9.7 % (3.8-10.2); NEUT % 69.3 % (42.8-82.8); PLATELET COUNT 251 10^3/uL (134-434); RBC 3.38 M/mm3 (3.60-5.2); RDW 15.4 % (11.6-15.6); WHITE BLOOD COUNT 6.7 K/mm3 (4.0-10.0)
[2022-04-07 07:57] LABS: CHLORIDE 107 mmol/L (98-107); SODIUM 142 mmol/L (136-145)
[2022-04-07 08:00] LABS: BLOOD UREA NITROGEN 22.7 mg/dL (7-18); CALCIUM 8.9 mg/dL (8.5-10.1)
[2022-04-07 08:01] LABS: ALBUMIN 2.9 g/dl (3.4-5.0); ANION GAP 3 MMOL/L (8-16); CO2 33 mmol/L (21-32); GLUCOSE,RANDOM 127 mg/dL (74-106); MAGNESIUM 2.2 mg/dL (1.8-2.4)
[2022-04-07 08:05] LABS: CREATININE 1.2 mg/dL (0.55-1.3); SGOT/AST 24 U/L (15-37); SGPT/ALT 16 U/L (13-61)
[2022-04-07 08:06] LABS: BILIRUBIN,TOTAL 0.6 mg/dL (0.2-1)
[2022-04-07 08:07] LABS: ALK PHOS 107 U/L (45-117); TOT PROT 5.8 g/dl (6.4-8.2)
[2022-04-07] MEDS ORDERED: PANTOPRAZOLE 20 MG TABLET PO SCH (10:00)
[2022-04-07] MEDS ORDERED: CLOPIDOGREL BISULFATE 75 MG TABLET (FP) PO SCH (10:00)
[2022-04-07] MEDS ORDERED: MULTIVITAMINS (DAILY MVI) TABLET (FP) PO SCH (10:00)
[2022-04-07] MEDS ORDERED: CLOPIDOGREL BISULFATE 75 MG TABLET (FP) ONE (11:14)
[2022-04-07] MEDS ORDERED: PANTOPRAZOLE 20 MG TABLET PO ONE (11:14)
[2022-04-07] MEDS ORDERED: QUEtiapine FUMARATE 25 MG TABLET PO SCH (11:15)
[2022-04-07] MEDS ORDERED: MULTIVITAMINS (DAILY MVI) TABLET (FP) ONE (11:15)
[2022-04-07] MEDS ORDERED: HALOPERIDOL LACTATE 5 MG/ML IM ONE ×2 (15:16→15:54)
[2022-04-07 16:30] VITALS: BMI 18.6
[2022-04-07] MEDS ORDERED: ARTIFICIAL TEARS (POLYVINYL ALCOHOL) OPTH DROPS OU PRN (19:09)
[2022-04-07] MEDS ORDERED: LISINOPRIL 20 MG TABLET PO ONE (21:58)
[2022-04-07] MEDS ORDERED: ATORVASTATIN CA 10 MG TABLET (FP) PO SCH ×2 (22:00)
[2022-04-08] MEDS ORDERED: QUEtiapine FUMARATE 25 MG TABLET PO SCH (10:00)
[2022-04-08] MEDS ORDERED: CLOPIDOGREL BISULFATE 75 MG TABLET (FP) PO SCH (10:00)
[2022-04-08] MEDS ORDERED: MULTIVITAMINS (DAILY MVI) TABLET (FP) PO SCH (10:00)
[2022-04-08] MEDS ORDERED: PANTOPRAZOLE 20 MG TABLET PO SCH (10:00)
[2022-04-08 14:22] VITALS: BP 159/71; PULSE 91; RESP 18; TEMP 98.4
== END 2022-04-08 18:45 | disposition home health service (06) ==
LOC: JER 13:37 → JERBED 19:40 → J6S 04-07 20:37
PROVIDERS: ADMIT Internal Medicine; ATTEND Family Medicine
PROC: 0SS9XZZ Reposition Right Hip Joint, External Approach (ICD-10-PCS; principal; 2022-04-06)
PROC: 3E023GC Introduction of Other Therapeutic Substance into Muscle, Percutaneous Approach (ICD-10-PCS; 2022-04-06)
PROC: 3E033NZ Introduction of Analgesics, Hypnotics, Sedatives into Peripheral Vein, Percutaneous Approach (ICD-10-PCS; 2022-04-06)
DX: S73.004A Unspecified dislocation of right hip, initial encounter (principal); W18.39XA Other fall on same level, initial encounter; Y93.89 Activity, other specified; Y92.008 Other place in unspecified non-institutional (private) residence as the place of occurrence of the external cause; M25.561 Pain in right knee; F03.90 Unspecified dementia, unspecified severity, without behavioral disturbance, psychotic disturbance, mood disturbance, and anxiety; E78.5 Hyperlipidemia, unspecified; R91.1 Solitary pulmonary nodule; Z95.5 Presence of coronary angioplasty implant and graft; I25.2 Old myocardial infarction; I25.10 Atherosclerotic heart disease of native coronary artery without angina pectoris; I11.9 Hypertensive heart disease without heart failure; E11.9 Type 2 diabetes mellitus without complications; K25.9 Gastric ulcer, unspecified as acute or chronic, without hemorrhage or perforation; I13.10 Hypertensive heart and chronic kidney disease without heart failure, with stage 1 through stage 4 chronic kidney disease, or unspecified chronic kidney disease; N18.9 Chronic kidney disease, unspecified
CPT/HCPCS: 36415; 70450-TC; 71046-TC-FY; 72125-TC; 72170-TC-FY; 73502-TC-RT-FY; 73552-TC-RT-FY; 73562-TC-RT-FY; 73590-TC-RT-FY; 80053; 81003; 82962; 83735; 84484; 85025; 85610; 85730; 87086; 93005; 93010; 96372; 96374; 99285-25; C9803-CS; G0378; U0003; U0005

== ENCOUNTER 2024-04-30 07:24 | Observation (INO) | payer OTHER ==
[2024-04-30 09:20] LABS: INR 1.12 (0.83-1.09); PROTHROMBIN TIME (PATIENT) 12.2 SEC (9.7-13.0)
[2024-04-30 09:22] LABS: ACTIVATED PTT 41.5 SECONDS (25.2-36.5)
[2024-04-30 09:25] LABS: VENOUS BASE EXCESS 2.5 mmol/L (-2-2); VENOUS O2 SATURATION 81.3 % (70-80); VENOUS PCO2 47.6 mmHg (38-52); VENOUS PH 7.389 (7.310-7.410)
[2024-04-30] MEDS ORDERED: ACETAMINOPHEN INJECTION 100 ML ONE (09:33)
[2024-04-30 09:40] LABS: BASO % 1.3 % (0-2.0); EOS % 0.8 % (0-4.5); HEMATOCRIT 33.9 % (32.4-45.2); HEMOGLOBIN 11.3 GM/dL (10.7-15.3); LYMPH % 20.1 % (8-40); MCH 28.7 pg (25.7-33.7); MCHC 33.4 g/dl (32.0-36.0); MEAN CELL VOLUME 86.1 fl (80-96); MEAN PLT VOLUME 8.6 fl (7.5-11.1); MONO % 9.7 % (3.8-10.2); NEUT % 68.1 % (42.8-82.8); PLATELET COUNT 273 10^3/uL (134-434); RBC 3.93 M/mm3 (3.60-5.2); WHITE BLOOD COUNT 4.5 K/mm3 (4.0-10.0)
[2024-04-30 09:42] LABS: CHLORIDE 107 mmol/L (98-107); SODIUM 138 mmol/L (136-145)
[2024-04-30 09:44] LABS: ALBUMIN 3.3 g/dl (3.4-5.0); BLOOD UREA NITROGEN 18.4 mg/dL (7-18); CALCIUM 9.4 mg/dL (8.5-10.1); CO2 27 mmol/L (21-32); GLUCOSE,RANDOM 135 mg/dL (74-106)
[2024-04-30 09:45] LABS: ANION GAP 4 mmol/L (4-13)
[2024-04-30 09:47] LABS: CREATININE 1.5 mg/dL (0.55-1.3)
[2024-04-30 09:49] LABS: BILIRUBIN,TOTAL 0.8 mg/dL (0.2-1); TOT PROT 7.9 g/dl (6.4-8.2)
[2024-04-30 09:50] LABS: ALK PHOS 109 U/L (45-117)
[2024-04-30 09:52] LABS: SGOT/AST 98 U/L (15-37); SGPT/ALT 21 U/L (13-61)
[2024-04-30] MEDS: LACTATED RINGERS SOLUTION 1000 ML INFUS.BAG IV ONE (11:01)
[2024-04-30] MEDS: ACETAMINOPHEN 1000 MG/100 ML BAG IVPB ONE (11:01)
[2024-04-30 11:32] LABS: POTASSIUM 3.5 mmol/L (3.5-5.1)
[2024-04-30 11:33] LABS: CALCIUM 9.3 mg/dL (8.5-10.1)
[2024-04-30 11:34] LABS: BLOOD UREA NITROGEN 17.6 mg/dL (7-18)
[2024-04-30 11:37] LABS: CREATININE 1.3 mg/dL (0.55-1.3)
[2024-04-30 13:29] LABS: EPI CELLS 1 /uL (0-25.1); HYALINE CASTS 0 /uL (0-3.1); PH,URINE 8.5 (5.0-8.0); URINE APPEARANCE CLEAR; URINE BACTERIA 25 /uL (0-1359); URINE BILIRUBIN NEGATIVE (NEGATIVE); URINE COLOR YELLOW; URINE GLUCOSE (UA) NEGATIVE (NEGATIVE); URINE KETONE NEGATIVE (NEGATIVE); URINE LEUK ESTERASE NEGATIVE (NEGATIVE); URINE NITRITE NEGATIVE (NEGATIVE); URINE PROTEIN 1+ (NEGATIVE); URINE RBC 8 /uL (0-23.9); URINE UROBILINOGEN 0.2 mg/dL (0.2-1.0); URINE WBC 2 /uL (0-25.8)
[2024-04-30] MEDS ORDERED: CEFTRIAXONE 1 G/50 ML PREMIX 50 ML IVPB ONE (13:45)
[2024-04-30] MEDS: CEFTRIAXONE 1 GM in DEXTROSE 5%-WATER - 100 ML IVPB ONE (13:56)
[2024-04-30] MEDS ORDERED: DOCUSATE SODIUM 100 MG CAPSULE (FP) PO PRN (15:28)
[2024-04-30] MEDS ORDERED: AZITHROMYCIN IVPB 500 MG/250 ML BAG IVPB ONE (15:38)
[2024-04-30] MEDS: AZITHROMYCIN IVPB 500 MG in DEXTROSE 5%-WATER - 250 ML IVPB ONE (16:39)
[2024-04-30 18:19] VITALS: BMI 10.4
[2024-04-30] MEDS: LABETALOL HCL 100 MG TABLET (FP) PO SCH (21:31)
[2024-04-30] MEDS: ATORVASTATIN CA 10 MG TABLET (FP) PO SCH (21:31)
[2024-05-01] MEDS: HALOPERIDOL LACTATE 5 MG/ML IM ONE (00:50)
[2024-05-01] MEDS: CLOPIDOGREL BISULFATE 75 MG TABLET (FP) PO SCH (09:35)
[2024-05-01] MEDS: PANTOPRAZOLE 40 MG TABLET PO SCH (09:35)
[2024-05-01] MEDS: amLODIPine BESYLATE 5 MG TABLET (FP) PO SCH (09:35)
[2024-05-01] MEDS: LISINOPRIL 20 MG TABLET PO SCH (09:35)
[2024-05-01] MEDS: QUEtiapine FUMARATE 25 MG TABLET PO SCH (11:18)
[2024-05-01 12:14] LABS: HEMATOCRIT 33.9 % (32.4-45.2); HEMOGLOBIN 11.5 GM/dL (10.7-15.3); MCH 29.3 pg (25.7-33.7); MEAN CELL VOLUME 86.2 fl (80-96); MEAN PLT VOLUME 8.1 fl (7.5-11.1); PLATELET COUNT 250 10^3/uL (134-434); RBC 3.93 M/mm3 (3.60-5.2); RDW 13.8 % (11.6-15.6); WHITE BLOOD COUNT 7.7 K/mm3 (4.0-10.0)
[2024-05-01 12:32] LABS: POTASSIUM 3.1 mmol/L (3.5-5.1)
[2024-05-01 12:34] LABS: CALCIUM 9.6 mg/dL (8.5-10.1)
[2024-05-01 12:35] LABS: ALBUMIN 3.6 g/dl (3.4-5.0); BLOOD UREA NITROGEN 18.3 mg/dL (7-18)
[2024-05-01 12:38] LABS: CREATININE 1.3 mg/dL (0.55-1.3)
[2024-05-01 12:39] LABS: BILIRUBIN,TOTAL 0.7 mg/dL (0.2-1)
[2024-05-01 12:40] LABS: TOT PROT 6.9 g/dl (6.4-8.2)
[2024-05-01] MEDS: POTASSIUM CHLORIDE ORAL LIQUID 20 MEQ/15 ML PO ONE (15:48)
[2024-05-01] MEDS: DOXYCYCLINE HYCLATE 100 MG CAPSULE PO SCH (17:09)
[2024-05-01] MEDS: ACETAMINOPHEN 325 MG TABLET (FP) PO PRN (20:19)
[2024-05-02] MEDS: CEFTRIAXONE 1 G/50 ML PREMIX 50 ML IVPB SCH (09:56)
[2024-05-02] MEDS: DONEPEZIL HCL 5 MG TABLET (FP) PO SCH (21:37)
[2024-05-02 21:57] LABS: POTASSIUM 3.4 mmol/L (3.5-5.1)
[2024-05-02 22:01] LABS: BLOOD UREA NITROGEN 26.7 mg/dL (7-18)
[2024-05-02 22:02] LABS: CALCIUM 9.3 mg/dL (8.5-10.1)
[2024-05-02 22:13] LABS: BILIRUBIN,TOTAL 0.6 mg/dL (0.2-1); CREATININE 1.7 mg/dL (0.55-1.3)
[2024-05-02 22:15] LABS: TOT PROT 6.1 g/dl (6.4-8.2)
[2024-05-03 07:58] LABS: POTASSIUM 3.4 mmol/L (3.5-5.1)
[2024-05-03 08:22] LABS: BLOOD UREA NITROGEN 25.9 mg/dL (7-18); CALCIUM 9.1 mg/dL (8.5-10.1)
[2024-05-03 08:25] LABS: CREATININE 1.6 mg/dL (0.55-1.3)
[2024-05-03 08:26] LABS: BILIRUBIN,TOTAL 0.6 mg/dL (0.2-1)
[2024-05-03 08:27] LABS: TOT PROT 6.2 g/dl (6.4-8.2)
[2024-05-03] MEDS: SODIUM CHLORIDE 0.45% 1,000 ML IV SCH (16:09)
[2024-05-04 06:27] VITALS: PULSE 78
[2024-05-04 09:35] VITALS: BP 161/100; RESP 18; TEMP 98.2
== END 2024-05-04 10:03 | disposition home or self-care (01) ==
LOC: JER 07:24 → JERBED 13:55 → UNDOADMOB 13:55 → J4W 17:26 → JERBED 17:26 → J4W 05-01 11:37 → JERBED 05-01 11:37
PROVIDERS: ADMIT Family Medicine; ATTEND Family Medicine
PROC: 3E033NZ Introduction of Analgesics, Hypnotics, Sedatives into Peripheral Vein, Percutaneous Approach (ICD-10-PCS; principal; 2024-05-01)
PROC: 3E03329 Introduction of Other Anti-infective into Peripheral Vein, Percutaneous Approach (ICD-10-PCS; 2024-05-01)
PROC: 3E023NZ Introduction of Analgesics, Hypnotics, Sedatives into Muscle, Percutaneous Approach (ICD-10-PCS; 2024-05-01)
PROC: 3E0337Z Introduction of Electrolytic and Water Balance Substance into Peripheral Vein, Percutaneous Approach (ICD-10-PCS; 2024-05-01)
DX: J18.9 Pneumonia, unspecified organism (principal); R91.1 Solitary pulmonary nodule; F03.90 Unspecified dementia, unspecified severity, without behavioral disturbance, psychotic disturbance, mood disturbance, and anxiety; I25.10 Atherosclerotic heart disease of native coronary artery without angina pectoris; E11.22 Type 2 diabetes mellitus with diabetic chronic kidney disease; I12.9 Hypertensive chronic kidney disease with stage 1 through stage 4 chronic kidney disease, or unspecified chronic kidney disease; N18.9 Chronic kidney disease, unspecified; I25.2 Old myocardial infarction
CPT/HCPCS: 0241U-QW; 36415; 70450-TC; 71045-TC-FY; 71250-TC; 72125-TC; 72170-TC-FY; 80048; 80053; 81003; 82803; 83036; 83540; 83550; 83605; 84484; 85025; 85027; 85610; 85730; 86850; 86900; 86901; 87086; 93005; 93010; 96361; 96365; 96367; 96372; 96375; 97116-GP; 97162-GP; 99285-25; G0378; J0131

== ENCOUNTER 2024-06-29 05:37 | Emergency (ER) | payer OTHER ==
[2024-06-29 05:57] VITALS: BMI 22.3
[2024-06-29] MEDS ORDERED: ACETAMINOPHEN INJECTION 100 ML ONE (06:23)
[2024-06-29] MEDS ORDERED: ONDANSETRON 4 MG/2 ML VIAL ONE ×2 (06:24→06:33)
[2024-06-29] MEDS ORDERED: MAG HYDROX/AL HYDROX/SIMETH 30 ML UNIT-DOSE CUP ONE (06:24)
[2024-06-29] MEDS ORDERED: FAMOTIDINE 20 MG/50 ML IVPB 20 MG/50 ML MG IVPB ONE (06:24)
[2024-06-29 06:43] LABS: HEMATOCRIT 36.3 % (34.1-44.9); HEMOGLOBIN 11.5 g/dL (11.2-15.7); MCHC 31.7 g/dl (32.2-35.5); MEAN CELL VOLUME 91.9 fl (79.4-94.8); PLATELET COUNT 237 x10^3/uL (182-369); RDW 13.7 % (12.5-17.0)
[2024-06-29] MEDS: MAG HYDROX/AL HYDROX/SIMETH 30 ML UNIT-DOSE CUP PO ONE (06:44)
[2024-06-29] MEDS: ONDANSETRON 4 MG/2 ML VIAL IVPB ONE (06:44)
[2024-06-29] MEDS: SODIUM CHLORIDE 0.9% 500 ML INFUS.BAG IV ONE (06:44)
[2024-06-29] MEDS: FAMOTIDINE 20 MG/50 ML IVPB 20 MG/50 ML MG IVPB ONE (06:44)
[2024-06-29 06:51] LABS: INR 1.2 (0.83-1.09); PROTHROMBIN TIME (PATIENT) 13.1 SEC (9.7-13.0)
[2024-06-29 06:54] LABS: ACTIVATED PTT 42.8 SECONDS (25.2-36.5)
[2024-06-29 06:58] LABS: CHLORIDE 108 mmol/L (98-107); POTASSIUM 3.5 mmol/L (3.5-5.1); SODIUM 143 mmol/L (136-145)
[2024-06-29 07:01] LABS: ALBUMIN 3.5 g/dl (3.4-5.0); ANION GAP 8 mmol/L (4-13); BLOOD UREA NITROGEN 30.1 mg/dL (7-18); CALCIUM 8.8 mg/dL (8.5-10.1); CO2 27 mmol/L (21-32); GLUCOSE,RANDOM 166 mg/dL (74-106); MAGNESIUM 1.9 mg/dL (1.8-2.4)
[2024-06-29] MEDS: ACETAMINOPHEN 1000 MG/100 ML BAG IVPB ONE (07:01)
[2024-06-29 07:04] LABS: CREATININE 1.6 mg/dL (0.55-1.3); SGOT/AST 15 U/L (15-37); SGPT/ALT 11 U/L (13-61)
[2024-06-29 07:06] LABS: BILIRUBIN,TOTAL 0.7 mg/dL (0.2-1); TOT PROT 6.9 g/dl (6.4-8.2)
[2024-06-29 07:07] LABS: ALK PHOS 99 U/L (45-117)
[2024-06-29] MEDS ORDERED: LEVOTHYROXINE NA 100 MCG TABLET (FP) ONE (07:41)
[2024-06-29 09:04] VITALS: BP 161/76; PULSE 80; RESP 14
[2024-06-29 09:06] VITALS: TEMP 98.6
== END 2024-06-29 09:51 | disposition home or self-care (01) ==
LOC: JER 05:37
PROC: 3E033GC Introduction of Other Therapeutic Substance into Peripheral Vein, Percutaneous Approach (ICD-10-PCS; principal; 2024-06-29)
PROC: 3E033NZ Introduction of Analgesics, Hypnotics, Sedatives into Peripheral Vein, Percutaneous Approach (ICD-10-PCS; 2024-06-29)
PROC: 3E033GC Introduction of Other Therapeutic Substance into Peripheral Vein, Percutaneous Approach (ICD-10-PCS; 2024-06-29)
DX: R11.2 Nausea with vomiting, unspecified (principal); R19.7 Diarrhea, unspecified
CPT/HCPCS: 0241U-QW; 36415; 71046-TC-FY; 80053; 82550; 83690; 83735; 84484; 85027; 85610; 85730; 93005; 93010; 96365; 96375; 99285-25; J0131